=== PATIENT | male | born 1980 | race Caucasian/White ===

== ENCOUNTER 2023-09-04 15:37 | Outpatient (AMB) | payer OTHER, SELFPAY ==
--- NOTE | 2023-09-04 15:46 | A.OFFPC_ITS ---
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 Has not seen primary care doctor in quite a while. He does have past medical history significant for obstructive sleep apnea and obesity. Reports his lifestyle has been fairly sedentary and he does not eat well at all. Has not tried to lose any weight at this point in knows it is time to work on his lifestyle. Today's blood pressure in office elevated today. He reports a lot of stress at work which could be contributing to his high blood pressure. PLAN: He is willing to start blood pressure medication and start tracking his blood pressure at home with goal blood pressure to be below 140/90 .. Obstructive sleep apnea: He was followed by a christmas tree contractor at [place] though has lost follow-up. He does use a CPAP machine on a nightly basis with good effect. He would like to reestablish care with a christmas tree contractor here in [place]. VAccine : Does report having a COVID vaccine, up-to-date with tetanus vaccine and pneumonia vaccine. [facility] Surgical History S/P knee surgery S/P tonsillectomy Social History (Updated 09/04/23 @ 16:45 by Sean Aguilar PA-C) Housing: House Alcohol intake: current Alcohol intake frequency: a few times a week Alcohol type: beer Patient Tobacco Use Status: Never used Tobacco e-Cigarette/Vaping Use: Never Used service: No Current occupational status: employed Current occupation: [employer] Cognitive needs: No Hearing needs: No Vision needs: No Questionnaire PHQ-9 Over the last 2 weeks, how often have you been bothered by any of the following problems? 1. Little interest or pleasure in doing things: not at all 2. Feeling down, depressed, or hopeless: not at all 3. Trouble falling or staying asleep, or sleeping too much: not at all 4. Feeling tired or having little energy: not at all 5. Poor appetite or overeating: not at all 6. Feeling bad about yourself - or that you are a failure or have let yourself or your family down: not at all 7. Trouble concentrating on things, such as reading the newspaper or watching television: not at all 8. Moving or speaking so slowly that other people could have noticed. Or the opposite - being so fidgety or restless that you have been moving around a lot more than usual: not at all 9. Thoughts that you would be better off or of hurting yourself in some way: not at all Total score: 0 Depression Screening Interpretation: Negative Depression Screening Done: Yes 85905 - PHQ-9 Billing: Yes Source: Developed by Drs. Juan Borjas, Connie Keita, Obed Lacey and colleagues, with an educational izabel from [employer]. Thrive Questionnaire Date Thrive assessed: 09/04/23 I am a: Patient What is your living situation today?: I have a steady place to live Within the past 12 months, did the food you bought not last and you didn't have the money to get more?: Never true Within the past 12 months, did you worry whether your food would run out before you got money to buy more?: Never true Do you have trouble paying for medicines?: No Do you have trouble getting transportation to medical appointments?: No Do you have trouble paying your heating and electricity bill?: No Do you have trouble taking care of your child, family member or friend?: No Do you have trouble with day-to-day activities such as bathing, preparing meals, shopping, managing finances, etc.?: No Are you currently unemployed and looking for a job?: No Are you interested in more education?: No Please select the resources that you would like help with: None Currently or been in a relationship where the following occur: no concerns reported THRIVE Score: 0 AUDIT C Alcohol Use Questionnaire (AUDIT-C) 1. How often do you have a drink containing alcohol?: 2-4 times a month 2. How many drinks containing alcohol do you have on a typical day when you are drinking?: 3 or 4 3. How often do you have six or more drinks on one occasion?: Never Total Score: 3 JOSSELINE-7 AMB Questionnaire JOSSELINE-7 Date JOSSELINE - 7 assessed: 09/04/23 Feeling nervous, anxious, or on edge: 0 = Not at all Not being able to stop or control worryin = Not at all Worrying too much about different things: 0 = Not at all Trouble relaxin = Not at all Being so restless that it is hard to sit still: 0 = Not at all Becoming easily annoyed or irritable: 0 = Not at all Feeling afraid as if something awful might happen: 0 = Not at all Total JOSSELINE-7 score (0-4 normal; 5-9 mild; 10-14 moderate; 15-21 severe): 0 Source: Developed by Drs. Juan Borjas, Connie Keita, Obed Lacey and colleagues, with an educational izabel from [employer]. JOSSELINE-7 Assessment Billing JOSSELINE-7 Assessment Tool: JOSSELINE-7 Assessment 46310 Review of Systems Const Denies headache(s) Eyes Denies loss of vision ENT Denies vertigo, Denies dizziness, Denies headache(s) and Denies sore throat Card Denies chest pain, Denies leg edema and Denies lightheadedness Resp Denies cough, Denies hemoptysis and Denies wheezing GI Denies abdominal pain, Denies melena, Denies constipation, Denies diarrhea and Denies vomiting Denies dysuria, Denies urinary frequency and Denies urinary urgency Musc Denies arthralgias, Denies joint swelling, Denies numbness and Denies tingling Neuro Denies Abnormal speech present, Denies behavioral changes, Denies vertigo, Denies dizziness, Denies headache(s), Denies loss of vision, Denies memory loss, Denies numbness and Denies tingling Psych Denies anxiety, Denies behavioral changes, Denies depression, Denies memory loss and Denies panic attacks Rashard/Lymph Denies easy bleeding and Denies easy bruising Aller/Immun Denies wheezing Physical exam (Primary Care) Vital Signs: Last Vital Signs Pulse 87 09/04/23 16:09 BP 168/94 H 09/04/23 16:09 Pulse Ox 96 09/04/23 16:09 Oxygen Delivery Method Room Air 09/04/23 16:09 BMI result Body Mass Index 57.0 BMI Assessment/Plan discussion: High Tobacco/Smoking Status: Tobacco use Status Tobacco use date assessed 09/04/23 09/04/23 16:16 Patient Tobacco Use Status Never used Tobacco 09/04/23 16:45 e-Cigarette/Vaping Use Never Used 09/04/23 16:45 PHQ-9: PHQ-9 Score PHQ-9: Total score 0 09/04/23 16:50 Depression Screening Interpretation: Negative Thrive Assessment: Date of Thrive Assessment Date Thrive assessed 09/04/23 09/04/23 16:16 Currently or been in a relationship where the following occur: no concerns reported Const Other: MORBIDLY OBESE General: healthy appearing, no acute distress, alert and awake Nutritional Appearance: well nourished Orientation/consciousness: oriented to person, oriented to place and oriented to time HENMT Ears: TM's normal bilaterally General nose exam: Normal nasal mucous membranes and turbinates present Eyes Conjunctivae: conjunctivae normal Sclerae: sclerae normal Pupils: Equal, round and reactive pupils present Neck Neck: Yes no lymphadenopathy and Yes no JVD Thyroid: Thyroid normal Carotids: no bruits Resp Effort & Inspection: normal respiratory effort and not tachypneic Auscultation: no crackles, no rales, no rhonchi and no wheezes Cardio Rate: regular rate Rhythm: regular rhythm Heart sounds: no murmurs and normal S1 and S2 GI Palpation (GI): Soft to palpation, nontender, no hepatomegaly and no splenomegaly Auscultation: normal bowel sounds Skin General skin exam: no rashes or lesions noted and dry skin Neuro General: oriented to person, oriented to place and oriented to time Cranial nerves: Yes Equal, round and reactive pupils present Speech: No Abnormal speech present Gait exam (Neuro): Normal gait present Motor exam (neuro): no tremor noted Extrem Right upper extremity: full ROM Left upper extremity: full ROM Right lower extremity: full ROM; no edema Left lower extremity: full ROM; no edema Psych Mental Status: mental status grossly normal Speech and movement: Normal speech and movement present Affect: normal affect Attitude: cooperative Thought process: Normal thought process present Assessment and Plan Assessment & Plan (1) Annual physical exam: Code(s): Z00.00 - Encounter for general adult medical examination without abnormal findings (2) HTN (hypertension): Code(s): I10 - Essential (primary) hypertension Qualifiers: Hypertension type: primary hypertension Qualified Code(s): I10 - Essential (primary) hypertension Plan: Noted very elevated blood pressure today in office. He is willing to start low- dose blood pressure medication and monitor blood pressure at home with goal blood pressure to be below 140/90. (3) Obese: Code(s): E66.9 - Obesity, unspecified Qualifiers: Body mass index: BMI 50.0-59.9 Obesity classification: adult class 3 (BMI >= 40) Obesity type: due to excess calories Serious obesity comorbidity presence: with serious comorbidity Qualified Code(s): E66.01 - Morbid (severe) obesity due to excess calories; Z68.43 - Body mass index [BMI] 50.0-59.9, adult Plan: Patient does understand his BMI is well over 50 and will work on lifestyle and dietary modifications. He will try to be more physically active to lose weight. Of note we did discuss possibly starting injectable GLP 1 to help with weight loss and patient is considering We did also discuss weight management referral for evaluation of bariatric surgery though he would like to hold off on this for now. (4) Screening for diabetes mellitus (DM): Code(s): Z13.1 - Encounter for screening for diabetes mellitus (5) SULEMAN (obstructive sleep apnea): Code(s): G47.33 - Obstructive sleep apnea (adult) (pediatric) Plan: Patient does have a long history of SULEMAN. He continues on CPAP machine nightly basis with good effect. He was followed by a christmas tree contractor at [place] though has lost follow-up. He would like to reestablish care with a christmas tree contractor here in [place]. (6) Impaired glucose metabolism: Code(s): R73.09 - Other abnormal glucose Plan: Will check fasting blood sugar and A1c as I suspect he has an element of pre diabetes. (7) Skin lesion of neck: Code(s): L98.9 - Disorder of the skin and subcutaneous tissue, unspecified Plan: Has a large skin tag on his neck and in other areas of his body and he would like Dermatology evaluation and possible removal as they often bother him and gets stuck on clothing Orders: Orders Comprehensive [place]. Panel Fast 09/04/23 Z13.1 - Encounter for screening for diabetes mellitus Lipid Panel 09/04/23 E66.01 - Morbid (severe) obesity due to excess calories, Z68.43 - Body mass index [BMI] 50.0-59.9, adult Hemoglobin A1c 09/04/23 R73.09 - Other abnormal glucose Referrals Pulmonology Referral G47.33 - Obstructive sleep apnea (adult) (pediatric) Dermatology Referral L98.9 - Disorder of the skin and subcutaneous tissue, unspecified Medications: New hydrochlorothiazide 12.5 mg PO DAILY 30 days 30 tabs 1RF I10 - Essential (primary) hypertension, R73.09 - Other abnormal glucose Coding Level of Care Code New Pt Prev Care 40-64y(49532) Diagnoses Annual physical exam Z00.00 Primary hypertension I10 Hypertension type: primary hypertension Class 3 severe obesity due to excess calories with serious comorbidity and body mass index (BMI) of 50.0 to 59.9 in adult E66.01; Z68.43 Body mass index: BMI 50.0-59.9 Obesity classification: adult class 3 (BMI >= 40) Obesity type: due to excess calories Serious obesity comorbidity presence: with serious comorbidity Screening for diabetes mellitus (DM) Z13.1 SULEMAN (obstructive sleep apnea) G47.33 Impaired glucose metabolism R73.09 Skin lesion of neck L98.9 Additional Codes JOSSELINE-7 Assessment Billing - JOSSELINE-7 Assessment Tool: JOSSELINE-7 Assessment [id number] ([id number])
[2023-09-04 16:09] VITALS: BP 168/94; PULSE 87; O2SAT 96; BMI 57.0
== END 2023-09-04 17:09 | disposition home or self-care (01) ==
PROVIDERS: PCP Physician Assistant; Visit Provider Physician Assistant
DX: Z00.00 Encounter for general adult medical examination without abnormal findings (principal); I10 Essential (primary) hypertension; E66.01 Morbid (severe) obesity due to excess calories; Z68.43 Body mass index [BMI] 50.0-59.9, adult; Z13.1 Encounter for screening for diabetes mellitus; G47.33 Obstructive sleep apnea (adult) (pediatric); R73.09 Other abnormal glucose; L98.9 Disorder of the skin and subcutaneous tissue, unspecified
CPT/HCPCS: 99386

== ENCOUNTER 2023-10-08 13:24 | Outpatient (AMB) | payer OTHER, SELFPAY ==
[2023-10-08 13:26] VITALS: BP 157/84; PULSE 84; O2SAT 95; BMI 56.9
--- NOTE | 2023-10-08 13:26 | MHC.OFFVIS ---
Vital Signs 10/08/23 13:26 Height 5 ft 7.72 in Weight 371 lb 7.662 oz BMI 56.9 BP 157/84 H Blood Pressure Location Rt brachial Position Sitting Pulse 84 Pulse Source Doppler Pulse Oximetry (%) 95 Oxygen Delivery Method Room Air Intake Visit Reasons: sleep apnea Allergies No Known Allergies Allergy (Verified 10/08/23 13:32) HPI HPI sleep apnea: Details: 43-year-old gentleman with underlying severe sleep apnea currently on CPAP, with sleep study over 5 years prior referred for maintenance of his sleep therapy. Patient states that he has been using CPAP with good control of his symptoms. However, he does not have access to supplies. [facility] Surgical History S/P knee surgery S/P tonsillectomy Social History (Updated 10/08/23 @ 13:32 by Cheyanne Coto [facility]) Housing: House Alcohol intake: current Alcohol intake frequency: a few times a week Alcohol type: beer Patient Tobacco Use Status: Never used Tobacco Tobacco use type: Cigar e-Cigarette/Vaping Use: Never Used service: No Current occupational status: employed Current occupation: [employer] Cognitive needs: No Hearing needs: No Vision needs: No Review of Systems Const Denies daytime sleepiness, Denies excessive sweating, Denies fatigue, Denies fever(s), Denies lethargy, Denies malaise, Denies night sweats, Denies snoring and Denies weight loss Eyes Denies blurry vision and Denies itchy eyes ENT Denies nasal congestion, Denies post nasal drip, Denies sinus pain, Denies sinus pressure and Denies other ( Thrush) Card Denies chest pain, Denies pedal edema, Denies dyspnea, Denies orthopnea and Denies paroxysmal nocturnal dyspnea Resp Denies cough, Denies hemoptysis, Denies excessive phlegm production, Denies dyspnea, Denies snoring and Denies wheezing GI Denies abdominal pain and Denies heartburn Musc Denies myalgias, Denies arthralgias and Denies joint swelling Skin/Breast Denies rash Neuro Denies memory loss and Denies seizure-like activity Psych Denies abnormal sleep pattern, Denies anxiety and Denies memory loss Endo Denies excessive sweating, Denies fatigue and Denies heat intolerance Rashard/Lymph Denies easy bruising Aller/Immun Denies itchy eyes, Denies seasonal rhinorrhea and Denies wheezing Physical Exam Vital Signs: Last Vital Signs Pulse 84 10/08/23 13:26 BP 157/84 H 10/08/23 13:26 Pulse Ox 95 10/08/23 13:26 Oxygen Delivery Method Room Air 10/08/23 13:26 BMI result Body Mass Index 56.9 Const General: no acute distress and alert Nutritional Appearance: obese Orientation/consciousness: Other orientation findings ( oriented) HEENT Head: Yes atraumatic Eyes General: appearance normal, both eyes and all related structures Sclerae: sclerae normal EOM: EOMs intact bilaterally Neck Neck: Yes supple Lymphatic: no lymphadenopathy noted Resp Effort & Inspection: normal respiratory effort and no use of accessory muscles Auscultation: clear to auscultation bilaterally Cardio Rate: regular rate Rhythm: regular rhythm Heart sounds: no gallops, no murmurs and no rubs Skin General skin exam: other ( warm) Extrem General: No clubbing, No cyanosis and No edema Assessment & Plan Assessment & Plan (1) Obese: Code(s): E66.9 - Obesity, unspecified Category: Medical Qualifiers: Obesity type: due to excess calories Obesity classification: adult class 3 (BMI >= 40) Serious obesity comorbidity presence: with serious comorbidity Body mass index: BMI 50.0-59.9 Qualified Code(s): E66.01 - Morbid (severe) obesity due to excess calories; Z68.43 - Body mass index [BMI] 50.0-59.9, adult Plan: Morbid obesity, weight management service information provided. (2) SULEMAN (obstructive sleep apnea): Code(s): G47.33 - Obstructive sleep apnea (adult) (pediatric) Category: Medical Plan: Underlying severe obstructive sleep apnea currently on CPAP with remote sleep study in changes in weight. Will obtain new sleep study. Will request results of prior sleep study from [facility]. Will place supplies order with [facility]. Coding Level of Care Code New Pt Level 4 (02739) Diagnoses Class 3 severe obesity due to excess calories with serious comorbidity and body mass index (BMI) of 50.0 to 59.9 in adult E66.01; Z68.43 Obesity type: due to excess calories Obesity classification: adult class 3 (BMI >= 40) Serious obesity comorbidity presence: with serious comorbidity Body mass index: BMI 50.0-59.9 SULEMAN (obstructive sleep apnea) G47.33
== END 2023-10-08 13:41 | disposition home or self-care (01) ==
PROVIDERS: PCP Physician Assistant; Visit Provider Internal Medicine Pulmonary Disease
DX: E66.01 Morbid (severe) obesity due to excess calories (principal); Z68.43 Body mass index [BMI] 50.0-59.9, adult; G47.33 Obstructive sleep apnea (adult) (pediatric)
CPT/HCPCS: 99204

== ENCOUNTER → 2023-10-08 13:24 | Outpatient (BNVA) | payer OTHER, SELFPAY | PROVIDERS: PCP Physician Assistant; Visit Provider Internal Medicine Pulmonary Disease ==

== ENCOUNTER 2023-10-17 06:08 | Outpatient (REF) | payer OTHER, SELFPAY ==
[2023-10-17 11:07] LABS: Estimated Average Glucose 111 mg/dL; Hemoglobin A1c % 5.5 % (<6.0)
[2023-10-17 11:52] LABS: Alanine Aminotransferase 76 U/L (0-40); Albumin Level 4.3 g/dL (3.5-5.0); Alkaline Phosphatase 84 U/L (39-117); Anion Gap 16 (12-20); Aspartate Amino Transferase 42 U/L (5-37); Bilirubin Total 1.1 mg/dL (0.0-1.0); Blood Urea Nitrogen 17 mg/dL (9-16); Calcium 10.2 mg/dL (8.4-10.2); Carbon Dioxide 27 mmol/L (22-29); Chloride 98 mmol/L (96-108); Cholesterol 176 mg/dL (<200); Estimated Glomerular Filt Rate > 60; Glucose Fasting 95 mg/dL (60-99); HDL Cholesterol 52 mg/dL (>40); LDL Cholesterol Calculated 110 mg/dL (<100); Potassium 4.3 mmol/L (3.3-5.1); Sodium 137 mmol/L (135-145); Triglycerides 71 mg/dL (<150)
== END 2023-10-17 06:09 | disposition home or self-care (01) ==
LOC: HO.HMGCLDS 06:08
PROVIDERS: PCP Physician Assistant; Visit Provider Physician Assistant
DX: E66.01 Morbid (severe) obesity due to excess calories (principal); R73.09 Other abnormal glucose; Z13.1 Encounter for screening for diabetes mellitus; Z68.43 Body mass index [BMI] 50.0-59.9, adult
CPT/HCPCS: 36415; 80053; 80061; 83036

== ENCOUNTER 2023-10-22 13:49 | Outpatient (AMB) | payer OTHER, SELFPAY ==
--- NOTE | 2023-10-22 13:55 | MHC.PC.OV ---
Vital Signs 10/22/23 14:03 10/22/23 14:23 Height 5 ft 7.72 in Weight 372 lb 9.299 oz BMI 57.1 BP 170/80 H 160/90 H Blood Pressure Location Lt brachial Position Sitting Pulse 88 Pulse Source Pulse Oximeter Pulse Oximetry (%) 95 Oxygen Delivery Method Room Air Intake Visit Reasons: 6 week follow up Intake Note: Pt is here for HTN F/U. Associate Sales Representative Required: No Accompanied by: Self / Same As Patient Allergies No Known Allergies Allergy (Verified 10/22/23 14:05) Medication List - Last Reconciled 10/22/23 by Sean Aguilar PA-C hydrochlorothiazide 12.5 mg PO DAILY 30 days Tobacco use date assessed: 09/04/23 Dental Screening Dental Screen Date: 09/04/23 HPI 6 week follow up HPI Details Patient is a 43 year male here today for a follow-up visit. . He does have past medical history significant for obstructive sleep apnea, HTN, and obesity. Hypertension: Today's blood pressure in office elevated today. He reports a lot of stress at work which could be contributing to his high blood pressure. PLAN: He is willing to add on lisinopril 10 mg for better blood pressure control. Will continue on low-sodium diet and try to lose weight. .. Obstructive sleep apnea: He has establish care with [facility].. He does use a CPAP machine on a nightly basis with good effect. .. Morbid obesity: He does understand his BMI is well over 50 and will try to work on better eating habits and being more physically active to reduce his weight. He is interested in speaking with a dietitian about better eating habits as well. [facility] Surgical History S/P knee surgery S/P tonsillectomy Social History Housing: House Alcohol intake: current Alcohol intake frequency: a few times a week Alcohol type: beer Patient Tobacco Use Status: Never used Tobacco Tobacco use type: Cigar e-Cigarette/Vaping Use: Never Used service: No Current occupational status: employed Current occupation: [employer] Cognitive needs: No Hearing needs: No Vision needs: No Questionnaire Thrive Questionnaire Date Thrive assessed: 09/04/23 JOSSELINE-7 AMB Questionnaire JOSSELINE-7 Date JOSSELINE - 7 assessed: 09/04/23 Source: Developed by Drs. Juan Borjas, Connie Keita, Obed Lacey and colleagues, with an educational izabel from [employer]. Review of Systems Const Denies headache(s) Eyes Denies loss of vision ENT Denies vertigo, Denies dizziness, Denies headache(s) and Denies sore throat Card Denies chest pain, Denies leg edema and Denies lightheadedness Resp Denies cough, Denies hemoptysis and Denies wheezing GI Denies abdominal pain, Denies melena, Denies constipation, Denies diarrhea and Denies vomiting Denies dysuria, Denies urinary frequency and Denies urinary urgency Musc Denies arthralgias, Denies joint swelling, Denies numbness and Denies tingling Neuro Denies Abnormal speech present, Denies behavioral changes, Denies vertigo, Denies dizziness, Denies headache(s), Denies loss of vision, Denies memory loss, Denies numbness and Denies tingling Psych Denies anxiety, Denies behavioral changes, Denies depression, Denies memory loss and Denies panic attacks Rashard/Lymph Denies easy bleeding and Denies easy bruising Aller/Immun Denies wheezing Physical exam (Primary Care) Vital Signs: Last Vital Signs Pulse 88 10/22/23 14:03 BP 170/80 H 10/22/23 14:03 Pulse Ox 95 10/22/23 14:03 Oxygen Delivery Method Room Air 10/22/23 14:03 BMI result Body Mass Index 57.1 BMI Assessment/Plan discussion: High BMI High, discussed plan: lifestyle, weight reduction, dietary and physical activity Tobacco/Smoking Status: Tobacco use Status Tobacco use date assessed 09/04/23 10/22/23 14:01 Patient Tobacco Use Status Never used Tobacco 10/22/23 14:01 Tobacco use type Cigar 10/22/23 14:01 e-Cigarette/Vaping Use Never Used 10/22/23 14:01 Thrive Assessment: Date of Thrive Assessment Date Thrive assessed 09/04/23 10/22/23 14:01 Const General: healthy appearing, no acute distress, alert and awake Nutritional Appearance: well nourished Orientation/consciousness: oriented to person, oriented to place and oriented to time HENMT Ears: TM's normal bilaterally General nose exam: Normal nasal mucous membranes and turbinates present Eyes Conjunctivae: conjunctivae normal Sclerae: sclerae normal Pupils: Equal, round and reactive pupils present Neck Neck: Yes no lymphadenopathy and Yes no JVD Thyroid: Thyroid normal Carotids: no bruits Resp Effort & Inspection: normal respiratory effort and not tachypneic Auscultation: no crackles, no rales, no rhonchi and no wheezes Cardio Rate: regular rate Rhythm: regular rhythm Heart sounds: no murmurs and normal S1 and S2 GI Palpation (GI): Soft to palpation, nontender, no hepatomegaly and no splenomegaly Auscultation: normal bowel sounds Skin General skin exam: no rashes or lesions noted and dry skin Neuro General: oriented to person, oriented to place and oriented to time Cranial nerves: Yes Equal, round and reactive pupils present Speech: No Abnormal speech present Gait exam (Neuro): Normal gait present Motor exam (neuro): no tremor noted Extrem Right upper extremity: full ROM Left upper extremity: full ROM Right lower extremity: full ROM; no edema Left lower extremity: full ROM; no edema Psych Mental Status: mental status grossly normal Speech and movement: Normal speech and movement present Affect: normal affect Attitude: cooperative Thought process: Normal thought process present Assessment and Plan Assessment & Plan (1) HTN (hypertension): Code(s): I10 - Essential (primary) hypertension Qualifiers: Hypertension type: primary hypertension Qualified Code(s): I10 - Essential (primary) hypertension Plan: Patient's blood pressure elevated today in office. Has been on hydrochlorothiazide 12.5 mg though has not seen a decrease his blood pressure. He denies any symptoms of headache, chest pain. He does use CPAP machine on a nightly basis. Will add on lisinopril 10 mg to his blood pressure med regime for better blood pressure control. He will continue working on being more physically active and low-sodium diet. Goal blood pressures to be below 140/90 (2) SULEMAN (obstructive sleep apnea): Code(s): G47.33 - Obstructive sleep apnea (adult) (pediatric) Plan: Has establish care with [facility]. He is using CPAP on a nightly basis with good effect on sleep. (3) Elevated liver enzymes: Code(s): R74.8 - Abnormal levels of other serum enzymes Plan: Noted elevated liver enzymes. Likely related to fatty liver. We did discuss perhaps getting liver ultrasound though will hold off on this time. He will work on lifestyle modifications. Orders: Referrals Head Athletic Trainer Nutrition Referral E66.01 - Morbid (severe) obesity due to excess calories, Z68.43 - Body mass index [BMI] 50.0-59.9, adult Medications: New lisinopril-hydrochlorothiazide 10-12.5 mg 1 tab PO DAILY 30 days 30 tabs 3RF I10 - Essential (primary) hypertension Discontinued hydrochlorothiazide Discontinued Reason: Doctor's Order 12.5 mg PO DAILY 30 days 30 tabs 1RF I10 - Essential (primary) hypertension, R73.09 - Other abnormal glucose Patient Instructions: Goal: Blood pressure to be below 140/90 :Barriers: Adherence to healthy eating habits and physical activity Coding Level of Care Code Est Pt Level 4 (85697) Diagnoses Primary hypertension I10 Hypertension type: primary hypertension SULEMAN (obstructive sleep apnea) G47.33 Elevated liver enzymes R74.8
[2023-10-22 14:03] VITALS: BP 170/80; PULSE 88; O2SAT 95; BMI 57.1
[2023-10-22 14:23] VITALS: BP 160/90
== END 2023-10-22 14:28 | disposition home or self-care (01) ==
PROVIDERS: PCP Physician Assistant; Visit Provider Physician Assistant
DX: I10 Essential (primary) hypertension (principal); G47.33 Obstructive sleep apnea (adult) (pediatric); R74.8 Abnormal levels of other serum enzymes
CPT/HCPCS: 99214

== ENCOUNTER 2023-12-17 14:02 | Outpatient (AMB) | payer OTHER, SELFPAY ==
[2023-12-17 14:14] VITALS: BP 144/78; PULSE 86; O2SAT 93; BMI 58.0
--- NOTE | 2023-12-17 14:14 | A.OFFPC_ITS ---
Vital Signs 12/17/23 14:14 Height 5 ft 7.72 in Weight 378 lb 5.012 oz BMI 58.0 BP 144/78 H Blood Pressure Location Rt brachial Position Semi Couch's Pulse 86 Pulse Source Pulse Oximeter Pulse Oximetry (%) 93 Oxygen Delivery Method Room Air Intake Visit Reasons: 3wk f\u bp check [address] Deputy Clerk Required: No Accompanied by: Self / Same As Patient Allergies No Known Allergies Allergy (Verified 12/17/23 14:16) Medication List - Last Reconciled 12/17/23 by Sean Aguilar PA-C lisinopril-hydrochlorothiazide 10-12.5 mg 1 tab PO DAILY 30 days Tobacco use date assessed: 09/04/23 Dental Screening Dental Screen Date: 09/04/23 HPI 3wk f\u bp check HPI Details Patient is a 43 year male here today for a follow-up visit. . He does have past medical history significant for obstructive sleep apnea, HTN, and obesity. He is unfortunately gained some weight since last office visit. Hypertension: Today's blood pressure in office elevated today though appears improved as compared to previous blood pressure readings.. He continues on lisinopril hydrochlorothiazide. He reports a lot of stress at work which could be contributing to his high blood pressure. PLAN: Will increase his lisinopril dose to 20 mg for better blood pressure control. [facility] Surgical History S/P knee surgery S/P tonsillectomy Social History Housing: House Alcohol intake: current Alcohol intake frequency: a few times a week Alcohol type: beer Patient Tobacco Use Status: Never used Tobacco Tobacco use type: Cigar e-Cigarette/Vaping Use: Never Used service: No Current occupational status: employed Current occupation: [employer] Cognitive needs: No Hearing needs: No Vision needs: No Questionnaire Thrive Questionnaire Date Thrive assessed: 09/04/23 JOSSELINE-7 AMB Questionnaire JOSSELINE-7 Date JOSSELINE - 7 assessed: 09/04/23 Source: Developed by Drs. Juan Borjas, Connie Keita, Obed Lacey and colleagues, with an educational izabel from [employer]. Review of Systems Const Denies headache(s) Eyes Denies loss of vision ENT Denies vertigo, Denies dizziness, Denies headache(s) and Denies sore throat Card Denies chest pain, Denies leg edema and Denies lightheadedness Resp Denies cough, Denies hemoptysis and Denies wheezing GI Denies abdominal pain, Denies melena, Denies constipation, Denies diarrhea and D enies vomiting Denies dysuria, Denies urinary frequency and Denies urinary urgency Musc Denies arthralgias, Denies joint swelling, Denies numbness and Denies tingling Neuro Denies Abnormal speech present, Denies behavioral changes, Denies vertigo, Denies dizziness, Denies headache(s), Denies loss of vision, Denies memory loss, Denies numbness and Denies tingling Psych Denies anxiety, Denies behavioral changes, Denies depression, Denies memory loss and Denies panic attacks Rashard/Lymph Denies easy bleeding and Denies easy bruising Aller/Immun Denies wheezing Physical exam (Primary Care) Vital Signs: Last Vital Signs Pulse 86 12/17/23 14:14 BP 144/78 H 12/17/23 14:14 Pulse Ox 93 12/17/23 14:14 Oxygen Delivery Method Room Air 12/17/23 14:14 BMI result Body Mass Index 58.0 Tobacco/Smoking Status: Tobacco use Status Tobacco use date assessed 09/04/23 12/17/23 14:15 Patient Tobacco Use Status Never used Tobacco 12/17/23 14:15 Tobacco use type Cigar 12/17/23 14:15 e-Cigarette/Vaping Use Never Used 12/17/23 14:15 Thrive Assessment: Date of Thrive Assessment Date Thrive assessed 09/04/23 12/17/23 14:15 Const General: healthy appearing, no acute distress, alert and awake Nutritional Appearance: well nourished Orientation/consciousness: oriented to person, oriented to place and oriented to time HENMT Ears: TM's normal bilaterally General nose exam: Normal nasal mucous membranes and turbinates present Eyes Conjunctivae: conjunctivae normal Sclerae: sclerae normal Pupils: Equal, round and reactive pupils present Neck Neck: Yes no lymphadenopathy and Yes no JVD Thyroid: Thyroid normal Carotids: no bruits Resp Effort & Inspection: normal respiratory effort and not tachypneic Auscultation: no crackles, no rales, no rhonchi and no wheezes Cardio Rate: regular rate Rhythm: regular rhythm Heart sounds: no murmurs and normal S1 and S2 GI Palpation (GI): Soft to palpation, nontender, no hepatomegaly and no splenomegaly Auscultation: normal bowel sounds Skin General skin exam: no rashes or lesions noted and dry skin Neuro General: oriented to person, oriented to place and oriented to time Cranial nerves: Yes Equal, round and reactive pupils present Speech: No Abnormal speech present Gait exam (Neuro): Normal gait present Motor exam (neuro): no tremor noted Extrem Right upper extremity: full ROM Left upper extremity: full ROM Right lower extremity: full ROM; no edema Left lower extremity: full ROM; no edema Psych Mental Status: mental status grossly normal Speech and movement: Normal speech and movement present Affect: normal affect Attitude: cooperative Thought process: Normal thought process present Assessment and Plan Assessment & Plan (1) HTN (hypertension): Code(s): I10 - Essential (primary) hypertension Qualifiers: Hypertension type: primary hypertension Qualified Code(s): I10 - Essential (primary) hypertension Plan: Patient's blood pressure elevated today in office though seems to be better than previous. He has been on lisinopril 10 hydrochlorothiazide 12.5. Will increase his lisinopril to 20 mg for better blood pressure control.. He denies any symptoms of headache, chest pain. He will be set up with a financial director in near future to talk about diet plan. He is compliant with CPAP machine on a nightly basis. He will continue working on being more physically active and low-sodium diet. Goal blood pressures to be below 140/90 Medications: New lisinopril-hydrochlorothiazide 20-12.5 mg 1 tab PO DAILY 30 tabs 1RF 30 days I10 - Essential (primary) hypertension Discontinued lisinopril-hydrochlorothiazide 10-12.5 mg Discontinued Reason: Doctor's Order 1 tab PO DAILY 30 days 30 tabs 3RF I10 - Essential (primary) hypertension Patient Instructions: Goal: Blood pressure to be below 140/90 Barriers: Adherence to physical activity and healthy eating habits Coding Level of Care Code Est Pt Level 3 (97674) Diagnoses Primary hypertension I10 Hypertension type: primary hypertension
== END 2023-12-17 14:39 | disposition home or self-care (01) ==
PROVIDERS: PCP Physician Assistant; Visit Provider Physician Assistant
DX: I10 Essential (primary) hypertension (principal)
CPT/HCPCS: 99213

== ENCOUNTER 2023-12-26 14:22 | Outpatient (AMB) | payer OTHER, SELFPAY ==
[2023-12-26 14:40] VITALS: BMI 57.5
--- NOTE | 2023-12-26 14:40 | A.OFFVIS_ITS ---
VS Expanded 12/26/23 14:40 01/02/24 10:11 Height 5 ft 7.72 in 5 ft 7.72 in Weight 374 lb 12.573 oz 375 lb BMI 57.5 57.5 Intake Visit Reasons: OBESITY/LVM Allergies No Known Allergies Allergy (Verified 12/17/23 14:16) Nutrition Presentation Details: Pt presents for MNT for morbid obesity. The Pt was referred by PCP, Jordyn Diaz Pt reports havingn o meal routine and reports increased appetite BS Monitoring Most Recent Diabetes Results: Cholesterol 176 mg/dL (<200) 10/17/23 HDL Cholesterol 52 mg/dL (>40) 10/17/23 Triglycerides 71 mg/dL (<150) 10/17/23 Creatinine 0.92 mg/dL (0.5-1.4) 10/17/23 Blood Urea Nitrogen 17 mg/dL (9-16) H 10/17/23 Sodium 137 mmol/L (135-145) 10/17/23 Potassium 4.3 mmol/L (3.3-5.1) 10/17/23 Chloride 98 mmol/L (96-108) 10/17/23 Carbon Dioxide 27 mmol/L (22-29) 10/17/23 Calcium 10.2 mg/dL (8.4-10.2) 10/17/23 AST 42 U/L (5-37) H 10/17/23 ALT 76 U/L (0-40) H 10/17/23 Total Protein 8.0 g/dL (6.5-8.0) 10/17/23 Albumin 4.3 g/dL (3.5-5.0) 10/17/23 VLC-Blweuhy-Fi.Jeor Equation Height: 5 ft 7.72 in Weight: 375 lb Resting Metabolic Rate: 2567.77 Calculated Activity Level: Sedentary Calories Needed to Maintain Weight: 3081.32 Diagnosis Nutrition problem #1: food nutri know defi As related to (etiology) #1: diagnosis As evidenced by (sign/symptom) #1: knowledge deficit of diet [facility] Surgical History S/P knee surgery S/P tonsillectomy Social History Housing: House Alcohol intake: current Alcohol intake frequency: a few times a week Alcohol type: beer Patient Tobacco Use Status: Never used Tobacco Tobacco use type: Cigar e-Cigarette/Vaping Use: Never Used service: No Current occupational status: employed Current occupation: [employer] Cognitive needs: No Hearing needs: No Vision needs: No Assessment & Plan Assessment & Plan (1) Obese: Code(s): E66.9 - Obesity, unspecified Category: Medical Qualifiers: Obesity type: due to excess calories Obesity classification: adult class 3 (BMI >= 40) Serious obesity comorbidity presence: with serious comorbidity Body mass index: BMI 50.0-59.9 Qualified Code(s): E66.01 - Morbid (severe) obesity due to excess calories; Z68.43 - Body mass index [BMI] 50.0- 59.9, adult Plan: Wt: 170 Kg ( 01/07 ) Est kcal needs as per MSJ: 3100 (40% carb, 30% protein/fat) Est fluid needs as per 25-30 ml/d: 5100 Est prot per day as per 1 g/kg bw: 170 Recommend fiber intake : 8-10 g per day and gradually increase to 25-28 g per day for women and 35-38 g for men or as tolerated Recommend sodium intake per day : less than 1500 mg less than 2000 mg Educated patient on: ( R = reviewed V = verbalizes understanding N/R = needs review N/A = not applicable * Food sources of carbohydrate, adequate serving sizes and its role in various health conditions: R * Differences between complex carbohydrates a simple carbohydrates, role of fiber in diet: R * Lean protein sources of foods: R * Differences between types of fats and role in diet (mono on saturated fat fatty acids, saturated fatty acids, trans fats): R V N/R * Food sources of sodium in salt and healthy modifications for heart health in kidney health: R * Vitamins and minerals: R V N/R * Healthy plate method concept: R * Physical activity: Benefits a precaution: R V N/R * Dietary prevention of Hyperglycemia: R Patient Instructions: Practice mindful eating Have water with meals /snack, ok herb/fruit infused water Reduce total carb to 100g or less per meal 3 meals/day and 0-20 g as snack 3 snacks a day Coding Level of Care Code Nutr Indiv Intake (42034) Diagnoses Class 3 severe obesity due to excess calories with serious comorbidity and body mass index (BMI) of 50.0 to 59.9 in adult E66.01; Z68.43 Obesity type: due to excess calories Obesity classification: adult class 3 (BMI >= 40) Serious obesity comorbidity presence: with serious comorbidity Body mass index: BMI 50.0-59.9 Time Spent (min) 30
[2024-01-02 10:11] VITALS: BMI 57.5
== END 2023-12-26 15:17 | disposition home or self-care (01) ==
PROVIDERS: PCP Physician Assistant; Visit Provider Dietitian, Registered
DX: E66.01 Morbid (severe) obesity due to excess calories (principal); Z68.43 Body mass index [BMI] 50.0-59.9, adult

== ENCOUNTER → 2023-12-26 14:22 | Outpatient (BNVA) | payer OTHER, SELFPAY | PROVIDERS: PCP Physician Assistant; Visit Provider Dietitian, Registered | DX: E66.01 Morbid (severe) obesity due to excess calories (principal); Z68.43 Body mass index [BMI] 50.0-59.9, adult; Z71.3 Dietary counseling and surveillance | CPT/HCPCS: 97802 ==

== ENCOUNTER 2024-01-14 12:53 | Outpatient (AMB) | payer OTHER, SELFPAY ==
--- NOTE | 2024-01-14 12:55 | A.OFFPC_ITS ---
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 He has been continued on lisinopril hydrochlorothiazide with decent affect. Unfortunately blood pressures remain elevated today in office. Of note he has lost weight since last office visit after seeing dietitian and making some lifestyle changes. Blood pressures are still slightly elevated at home 140s to 150 systolic. Will increase his hydrochlorothiazide dose to 25 mg. Concern--> he reports he has had a sore throat and some odynophagia ever since getting an illness in early December. [facility] Surgical History S/P knee surgery S/P tonsillectomy Social History Housing: House Alcohol intake: current Alcohol intake frequency: a few times a week Alcohol type: beer Patient Tobacco Use Status: Never used Tobacco Tobacco use type: Cigar e-Cigarette/Vaping Use: Never Used service: No Current occupational status: employed Current occupation: [employer] Cognitive needs: No Hearing needs: No Vision needs: No Questionnaire Thrive Questionnaire Date Thrive assessed: 09/04/23 JOSSELINE-7 AMB Questionnaire JOSSELINE-7 Date JOSSELINE - 7 assessed: 09/04/23 Source: Developed by Drs. Juan Borjas, Connie Keita, Obed Lacey and colleagues, with an educational izabel from [employer]. Review of Systems Const Denies headache(s) Eyes Denies loss of vision ENT Denies vertigo, Denies dizziness, Denies headache(s) and Denies sore throat Card Denies chest pain, Denies leg edema and Denies lightheadedness Resp Denies cough, Denies hemoptysis and Denies wheezing GI Denies abdominal pain, Denies melena, Denies constipation, Denies diarrhea and Denies vomiting Denies dysuria, Denies urinary frequency and Denies urinary urgency Musc Denies arthralgias, Denies joint swelling, Denies numbness and Denies tingling Neuro Denies Abnormal speech present, Denies behavioral changes, Denies vertigo, Denies dizziness, Denies headache(s), Denies loss of vision, Denies memory loss, Denies numbness and Denies tingling Psych Denies anxiety, Denies behavioral changes, Denies depression, Denies memory loss and Denies panic attacks Rashard/Lymph Denies easy bleeding and Denies easy bruising Aller/Immun Denies wheezing Physical exam (Primary Care) Vital Signs: Last Vital Signs Pulse 77 01/14/24 12:56 BP 158/86 H 01/14/24 12:56 Pulse Ox 95 01/14/24 12:56 Oxygen Delivery Method Room Air 01/14/24 12:56 BMI result Body Mass Index 56.6 Tobacco/Smoking Status: Tobacco use Status Tobacco use date assessed 09/04/23 01/14/24 13:00 Patient Tobacco Use Status Never used Tobacco 01/14/24 13:00 Tobacco use type Cigar 01/14/24 13:00 e-Cigarette/Vaping Use Never Used 01/14/24 13:00 Thrive Assessment: Date of Thrive Assessment Date Thrive assessed 09/04/23 01/14/24 13:00 Const General: healthy appearing, no acute distress, alert and awake Nutritional Appearance: well nourished Orientation/consciousness: oriented to person, oriented to place and oriented to time HENMT Ears: TM's normal bilaterally General nose exam: Normal nasal mucous membranes and turbinates present Eyes Conjunctivae: conjunctivae normal Sclerae: sclerae normal Pupils: Equal, round and reactive pupils present Neck Neck: Yes no lymphadenopathy and Yes no JVD Thyroid: Thyroid normal Carotids: no bruits Resp Effort & Inspection: normal respiratory effort and not tachypneic Auscultation: no crackles, no rales, no rhonchi and no wheezes Cardio Rate: regular rate Rhythm: regular rhythm Heart sounds: no murmurs and normal S1 and S2 GI Palpation (GI): Soft to palpation, nontender, no hepatomegaly and no splenomegaly Auscultation: normal bowel sounds Skin General skin exam: no rashes or lesions noted and dry skin Neuro General: oriented to person, oriented to place and oriented to time Cranial nerves: Yes Equal, round and reactive pupils present Speech: No Abnormal speech present Gait exam (Neuro): Normal gait present Motor exam (neuro): no tremor noted Extrem Right upper extremity: full ROM Left upper extremity: full ROM Right lower extremity: full ROM; no edema Left lower extremity: full ROM; no edema Psych Mental Status: mental status grossly normal Speech and movement: Normal speech and movement present Affect: normal affect Attitude: cooperative Thought process: Normal thought process present Assessment and Plan Assessment & Plan (1) HTN (hypertension): Code(s): I10 - Essential (primary) hypertension Qualifiers: Hypertension type: primary hypertension Qualified Code(s): I10 - Essential (primary) hypertension Plan: Patient's blood pressure elevated today in office. He reports that home blood pressure still slightly elevated 140s to 150 systolic. Will increase his hydrochlorothiazide dose to 25 mg for better blood pressure control. He has lost weight since he has been talking to a dietitian and making some dietary modifications. Suspect he will lose more weight with continued dietary modifications along with that his blood pressure should stabilize. Goal blood pressure to be below 140/90 (2) Pharyngitis: Code(s): J02.9 - Acute pharyngitis, unspecified Qualifiers: Pharyngitis/tonsillitis etiology: other specified organisms Qualified Code(s): J02.8 - Acute pharyngitis due to other specified organisms Plan: Has a sore throat and some odynophagia over last 2 weeks. Throat exam without any erythema or tonsillar exudates. Will supply patient with amoxicillin for possible infection. Medications: New amoxicillin 500 mg PO Q8H 7 days 21 caps 0RF J02.8 - Acute pharyngitis due to other specified organisms lisinopril-hydrochlorothiazide 20-25 mg 1 tab PO DAILY 30 days 30 tabs 3RF I10 - Essential (primary) hypertension Discontinued lisinopril-hydrochlorothiazide 20-12.5 mg Discontinued Reason: Doctor's Order 1 tab PO DAILY 30 days 30 tabs 1RF I10 - Essential (primary) hypertension Coding Level of Care Code Est Pt Level 3 (47586) Diagnoses Primary hypertension I10 Hypertension type: primary hypertension Pharyngitis due to other organism J02.8 Pharyngitis/tonsillitis etiology: other specified organisms
[2024-01-14 12:56] VITALS: BP 158/86; PULSE 77; O2SAT 95; BMI 56.6
== END 2024-01-14 13:22 | disposition home or self-care (01) ==
PROVIDERS: PCP Physician Assistant; Visit Provider Physician Assistant
DX: I10 Essential (primary) hypertension (principal); J02.8 Acute pharyngitis due to other specified organisms
CPT/HCPCS: 99213

== ENCOUNTER 2024-02-27 08:33 | Outpatient (AMB) | payer OTHER, SELFPAY ==
--- NOTE | 2024-02-27 08:53 | MHC.PC.OV ---
Vital Signs 02/27/24 08:55 Height 5 ft 7 in Weight 364 lb 2 oz BMI 57.0 BP 120/74 Blood Pressure Location Lt brachial Position Sitting Pulse 77 Pulse Source Pulse Oximeter Pulse Oximetry (%) 96 Oxygen Delivery Method Room Air Intake Visit Reasons: f/u HTN Intake Note: Patient is here to follow up on HTN. Industrial Controller Required: No Hospice/Home Health Aide: Not Required per policy Accompanied by: Self / Same As Patient Allergies No Known Allergies Allergy (Verified 02/27/24 09:04) Medication List - Last Reconciled 02/27/24 by Sean Aguilar PA-C lisinopril-hydrochlorothiazide 20-25 mg 1 tab PO DAILY 30 days Tobacco use date assessed: 02/27/24 Dental Screening Dental Screen Date: 09/04/23 HPI f/u HTN HPI Details Patient is a 44-year-old male here today for blood pressure med follow-up. At last visit we discussed his weight and blood pressure. We increased his hydrochlorothiazide 25 mg. Today's blood pressure much improved. Has lost a few lb since last office visit. He reports vacationing recently in October of fell off of his dietary modifications. He does report feeling somewhat more sweaty this is a side effect of the hydrochlorothiazide [facility] Surgical History S/P knee surgery S/P tonsillectomy Social History Housing: House Alcohol intake: current Alcohol intake frequency: a few times a week Alcohol type: beer Patient Tobacco Use Status: Never used Tobacco Tobacco use type: Cigar e-Cigarette/Vaping Use: Never Used Second Hand Smoke Exposure: No service: No Current occupational status: employed Current occupation: [employer] Cognitive needs: No Hearing needs: No Vision needs: No Questionnaire Thrive Questionnaire Date Thrive assessed: 09/04/23 JOSSELINE-7 AMB Questionnaire JOSSELINE-7 Date JOSSELINE - 7 assessed: 09/04/23 Source: Developed by Drs. Juan Borjas, Connie Keita, Obed Lacey and colleagues, with an educational izabel from [employer]. Review of Systems Const Denies headache(s) Eyes Denies loss of vision ENT Denies vertigo, Denies dizziness, Denies headache(s) and Denies sore throat Card Denies chest pain, Denies leg edema and Denies lightheadedness Resp Denies cough, Denies hemoptysis and Denies wheezing GI Denies abdominal pain, Denies melena, Denies constipation, Denies diarrhea and Denies vomiting Denies dysuria, Denies urinary frequency and Denies urinary urgency Musc Denies arthralgias, Denies joint swelling, Denies numbness and Denies tingling Neuro Denies Abnormal speech present, Denies behavioral changes, Denies vertigo, Denies dizziness, Denies headache(s), Denies loss of vision, Denies memory loss, Denies numbness and Denies tingling Psych Denies anxiety, Denies behavioral changes, Denies depression, Denies memory loss and Denies panic attacks Rashard/Lymph Denies easy bleeding and Denies easy bruising Aller/Immun Denies wheezing Physical exam (Primary Care) Vital Signs: Last Vital Signs Pulse 77 02/27/24 08:55 BP 120/74 02/27/24 08:55 Pulse Ox 96 02/27/24 08:55 Oxygen Delivery Method Room Air 02/27/24 08:55 BMI result Body Mass Index 57.0 Tobacco/Smoking Status: Tobacco use Status Tobacco use date assessed 02/27/24 02/27/24 09:01 Patient Tobacco Use Status Never used Tobacco 02/27/24 09:01 Tobacco use type Cigar 02/27/24 09:01 e-Cigarette/Vaping Use Never Used 02/27/24 09:01 Thrive Assessment: Date of Thrive Assessment Date Thrive assessed 09/04/23 02/27/24 09:01 Const General: healthy appearing, no acute distress, alert and awake Nutritional Appearance: well nourished Orientation/consciousness: oriented to person, oriented to place and oriented to time HENMT Ears: TM's normal bilaterally General nose exam: Normal nasal mucous membranes and turbinates present Eyes Conjunctivae: conjunctivae normal Sclerae: sclerae normal Pupils: Equal, round and reactive pupils present Neck Neck: Yes no lymphadenopathy and Yes no JVD Thyroid: Thyroid normal Carotids: no bruits Resp Effort & Inspection: normal respiratory effort and not tachypneic Auscultation: no crackles, no rales, no rhonchi and no wheezes Cardio Rate: regular rate Rhythm: regular rhythm Heart sounds: no murmurs and normal S1 and S2 GI Palpation (GI): Soft to palpation, nontender, no hepatomegaly and no splenomegaly Auscultation: normal bowel sounds Skin General skin exam: no rashes or lesions noted and dry skin Neuro General: oriented to person, oriented to place and oriented to time Cranial nerves: Yes Equal, round and reactive pupils present Speech: No Abnormal speech present Gait exam (Neuro): Normal gait present Motor exam (neuro): no tremor noted Extrem Right upper extremity: full ROM Left upper extremity: full ROM Right lower extremity: full ROM; no edema Left lower extremity: full ROM; no edema Psych Mental Status: mental status grossly normal Speech and movement: Normal speech and movement present Affect: normal affect Attitude: cooperative Thought process: Normal thought process present Assessment and Plan Assessment & Plan (1) HTN (hypertension): Code(s): I10 - Essential (primary) hypertension Qualifiers: Hypertension type: primary hypertension Qualified Code(s): I10 - Essential (primary) hypertension Plan: Patient's blood pressure much improved today in office. Continues on lisinopril 20 and hydrochlorothiazide 25 without any side effect. He has not been monitoring his blood pressure at home as he reports he effective blood pressure cuff. Suspect he will lose more weight with continued dietary modifications along with that his blood pressure should stabilize. Goal blood pressure to be below 140/90 Orders: Orders Comprehensive [place]. Panel Fast Today R73.09 - Other abnormal glucose Hemoglobin A1c Today R73.09 - Other abnormal glucose Microalbumin, Random (w Creat) Today I10 - Essential (primary) hypertension Patient Instructions: Goal: Blood pressure to remain below 140/90, lose 10 more lb in the next 3 months. Barriers: Adherence to physical activity and healthy eating habits Coding Level of Care Code Est Pt Level 4 (83530) Diagnoses Primary hypertension I10 Hypertension type: primary hypertension
[2024-02-27 08:55] VITALS: BP 120/74; PULSE 77; O2SAT 96; BMI 57.0
== END 2024-02-27 09:16 | disposition home or self-care (01) ==
PROVIDERS: PCP Physician Assistant; Visit Provider Physician Assistant
DX: I10 Essential (primary) hypertension (principal)
CPT/HCPCS: 99214

== ENCOUNTER 2024-03-05 13:21 | Outpatient (AMB) | payer OTHER, SELFPAY ==
[2024-03-05 13:34] VITALS: BMI 57.3
--- NOTE | 2024-03-05 13:34 | A.OFFVIS_ITS ---
VS Expanded 03/05/24 13:34 Height 5 ft 7 in Weight 365 lb 15.477 oz BMI 57.3 Intake Visit Reasons: obesity/LVM Allergies No Known Allergies Allergy (Verified 02/27/24 09:04) Nutrition Presentation Details: Pt presents for MNT for obesity Reports working on diet modifications, doing well when at work however with increased appetite when at home. Was on vacation and is feeling as if he could have done better diet modifications. BS Monitoring Most Recent Diabetes Results: Cholesterol 176 mg/dL (<200) 10/17/23 HDL Cholesterol 52 mg/dL (>40) 10/17/23 Triglycerides 71 mg/dL (<150) 10/17/23 Creatinine 0.92 mg/dL (0.5-1.4) 10/17/23 Blood Urea Nitrogen 17 mg/dL (9-16) H 10/17/23 Sodium 137 mmol/L (135-145) 10/17/23 Potassium 4.3 mmol/L (3.3-5.1) 10/17/23 Chloride 98 mmol/L (96-108) 10/17/23 Carbon Dioxide 27 mmol/L (22-29) 10/17/23 Calcium 10.2 mg/dL (8.4-10.2) 10/17/23 AST 42 U/L (5-37) H 10/17/23 ALT 76 U/L (0-40) H 10/17/23 Total Protein 8.0 g/dL (6.5-8.0) 10/17/23 Albumin 4.3 g/dL (3.5-5.0) 10/17/23 [facility] Surgical History S/P knee surgery S/P tonsillectomy Social History Housing: House Alcohol intake: current Alcohol intake frequency: a few times a week Alcohol type: beer Patient Tobacco Use Status: Never used Tobacco Tobacco use type: Cigar e-Cigarette/Vaping Use: Never Used Second Hand Smoke Exposure: No service: No Current occupational status: employed Current occupation: [employer] Cognitive needs: No Hearing needs: No Vision needs: No Assessment & Plan Assessment & Plan (1) Obese: Code(s): E66.9 - Obesity, unspecified Category: Medical Qualifiers: Body mass index: BMI 50.0-59.9 Obesity classification: adult class 3 (BMI >= 40) Obesity type: due to excess calories Serious obesity comorbidity presence: with serious comorbidity Qualified Code(s): E66.01 - Morbid (severe) obesity due to excess calories; Z68.43 - Body mass index [BMI] 50.0-59.9, adult Plan: Wt: 170 Kg ( 01/07 ), 166 kg (12/08),(03/10) Est kcal needs as per MSJ: 3100 (40% carb, 30% protein/fat) Est fluid needs as per 25-30 ml/d: 5100 Est prot per day as per 1 g/kg bw: 170 Recommend fiber intake : 8-10 g per day and gradually increase to 25-28 g per day for women and 35-38 g for men or as tolerated Recommend sodium intake per day : less than 1500 mg less than 2000 mg Educated patient on: ( R = reviewed V = verbalizes understanding N/R = needs review N/A = not applicable * Food sources of carbohydrate, adequate serving sizes and its role in various health conditions: R * Differences between complex carbohydrates a simple carbohydrates, role of fiber in diet: R * Lean protein sources of foods: R * Differences between types of fats and role in diet (mono on saturated fat fatty acids, saturated fatty acids, trans fats): R V N/R * Food sources of sodium in salt and healthy modifications for heart health in kidney health: R * Vitamins and minerals: R V N/R * Healthy plate method concept: R * Physical activity: Benefits a precaution: R V N/R * Dietary prevention of Hyperglycemia: R Patient Instructions: Work on serving meals at home utilizing plate method, opt for salad or fruit salad in place having second servings of the meal Eat slow, drink water Be mindful of salt in your food choices Coding Level of Care Code Nutr Indiv Subseq (27131) Diagnoses Class 3 severe obesity due to excess calories with serious comorbidity and body mass index (BMI) of 50.0 to 59.9 in adult E66.01; Z68.43 Body mass index: BMI 50.0-59.9 Obesity classification: adult class 3 (BMI >= 40) Obesity type: due to excess calories Serious obesity comorbidity presence: with serious comorbidity Time Spent (min) 30
== END 2024-03-05 14:14 | disposition home or self-care (01) ==
PROVIDERS: PCP Physician Assistant; Visit Provider Dietitian, Registered
DX: E66.01 Morbid (severe) obesity due to excess calories (principal); Z68.43 Body mass index [BMI] 50.0-59.9, adult

== ENCOUNTER → 2024-03-05 13:21 | Outpatient (BNVA) | payer OTHER, SELFPAY | PROVIDERS: PCP Physician Assistant; Visit Provider Dietitian, Registered | DX: E66.01 Morbid (severe) obesity due to excess calories (principal); Z68.43 Body mass index [BMI] 50.0-59.9, adult; Z71.3 Dietary counseling and surveillance | CPT/HCPCS: 97803 ==

== ENCOUNTER 2024-03-17 11:54 | Outpatient (AMB) | payer OTHER, SELFPAY ==
--- NOTE | 2024-03-17 11:59 | MHC.OFFWIV ---
Intake Vital Signs 03/17/24 12:00 Height 5 ft 7 in Weight 372 lb BMI 58.3 BP 140/82 H Blood Pressure Location Lt brachial Position Sitting Pulse 102 H Pulse Source Pulse Oximeter Temp 98.8 F Temp Source Oral Pulse Oximetry (%) 92 Oxygen Delivery Method Room Air Intake Visit Reasons: EP cough for a couple of weeks & phlem Intake Note: Patient here for cough that has been present for about 1 week. Wheezing and SOB Patient Tobacco Use Status: Never used Tobacco Allergies No Known Allergies Allergy (Verified 03/17/24 12:01) Do you need a note to return to daycare/school/sports/work: Yes HPI HPI Comments History of Present Illness Details 44 y/o male patient who presents to the walk in clinic with c/o SOB, productive cough and Wheezing for few weeks now. Denies fevers, chills, nausea or vomiting. 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 [facility] Surgical History S/P knee surgery S/P tonsillectomy Social History Housing: House Alcohol intake: current Alcohol intake frequency: a few times a week Alcohol type: beer Patient Tobacco Use Status: Never used Tobacco Tobacco use type: Cigar e-Cigarette/Vaping Use: Never Used Second Hand Smoke Exposure: No service: No Current occupational status: employed Current occupation: [employer] Cognitive needs: No Hearing needs: No Vision needs: No Review of Systems Const All systems reviewed & are unremarkable except as noted in HPI and below Physical Exam Vital Signs: Last Vital Signs Temp 98.8 F 03/17/24 12:00 Pulse 102 H 03/17/24 12:00 BP 140/82 H 03/17/24 12:00 Pulse Ox 92 03/17/24 12:00 Oxygen Delivery Method Room Air 03/17/24 12:00 BMI result Body Mass Index 58.3 Const Other: Mildly in distress, Pt has SOB and difficult completing sentences. General: cooperative; No comfortable Nutritional Appearance: obese morbidly obese Orientation/consciousness: patient oriented x3 HEENT Head: Yes normocephalic Ears: external ears normal Mouth: moist mucous membranes Throat: Yes postnasal drainage Resp Other: Unable to hear lung sounds well due to large body Habitus. Ordered chest Xray. Effort & Inspection: not able to speak in complete sentences and labored Neuro General: patient oriented x3, gait normal and moves all extremities Psych Speech and movement: Normal speech and movement present Assessment & Plan Assessment & Plan (1) Cough in adult: Code(s): R05.9 - Cough, unspecified Plan: Ordered chest Xray. Ordered Albuterol inhaler Rest OTC cough remedies Acetaminophen for pain relief (2) Wheezing on auscultation: Code(s): R06.2 - Wheezing Plan: Ordered chest Xray. Ordered Albuterol inhaler Rest OTC cough remedies Acetaminophen for pain relief (3) SOB (shortness of breath): Code(s): R06.02 - Shortness of breath Plan: Ordered chest Xray. Ordered Albuterol inhaler Rest OTC cough remedies Acetaminophen for pain relief Orders: Orders XR chest 2V Today R05.9 - Cough, unspecified, R06.02 - Shortness of breath, R06.2 - Wheezing Medications: New prednisone 50 mg PO DAILY 5 days 5 tabs 0RF R06.02 - Shortness of breath, R06.2 - Wheezing benzonatate 100 mg PO TID 90 caps 0RF R05.9 - Cough, unspecified doxycycline hyclate 100 mg PO BID 10 days 20 caps 0RF R05.9 - Cough, unspecified, R06.02 - Shortness of breath, R06.2 - Wheezing albuterol sulfate 90 mcg/actuation 2 puffs inhalation Q4-6H PRN 6.7 grams 0RF shortness of breath or wheezing R06.02 - Shortness of breath, R06.2 - Wheezing Coding Level of Care Code Est Pt Level 4 (75912) Diagnoses Cough in adult R05.9 Wheezing on auscultation R06.2 SOB (shortness of breath) R06.02 Time Spent (min) 20
[2024-03-17 12:00] VITALS: BP 140/82; PULSE 102; TEMP 37.1; O2SAT 92; BMI 58.3
== END 2024-03-17 13:58 | disposition home or self-care (01) ==
PROVIDERS: PCP Physician Assistant; Visit Provider Nurse Practitioner Family
DX: R05.9 Cough, unspecified (principal); R06.2 Wheezing; R06.02 Shortness of breath

== ENCOUNTER → 2024-03-17 11:54 | Outpatient (BNVA) | payer OTHER, SELFPAY | PROVIDERS: PCP Physician Assistant ==

== ENCOUNTER 2024-03-17 12:45 | Outpatient (REF) | payer OTHER, SELFPAY ==
--- NOTE | ~2024-03-17 | XR_ITS ---
EXAMINATION: XR CHEST CLINICAL INFORMATION: Cough, shortness of breath and wheezing for 2 weeks. COMPARISON: None available. TECHNIQUE: PA and lateral views of the chest were obtained. FINDINGS: No significant abnormality is noted involving the heart, lungs, mediastinum, bony thorax or soft tissues. XR/XR chest 2V IMPRESSION: Unremarkable examination. Electronically signed by: Anupam Mann MD 03/17/2024 02:27 PM EDT RP
== END 2024-03-17 12:46 | disposition home or self-care (01) ==
LOC: HO.HMGCX 12:45
PROVIDERS: PCP Physician Assistant; Visit Provider Nurse Practitioner Family
DX: R05.9 Cough, unspecified (principal); R06.2 Wheezing; R06.02 Shortness of breath
CPT/HCPCS: 71046

== ENCOUNTER 2024-03-17 14:56 | Inpatient (IN) | payer OTHER, SELFPAY ==
[2024-03-17] VITALS (10 sets, daily range): BP systolic 129–154; BP diastolic 63–98; PULSE 104–133; RESP 15–25; TEMP 36.8–37.2; O2SAT 90–95; BMI 56.0
--- NOTE | ~2024-03-17 | CT_ITS ---
EXAMINATION: CT ANGIOGRAM OF THE CHEST WITH AND WITHOUT CONTRAST (CT PULMONARY ANGIOGRAM FOR PE) CLINICAL INFORMATION: SOB, cough. hypoxia. COMPARISON: Chest radiograph 03/17/2024 earlier today TECHNIQUE: Prior to contrast administration, noncontrast localization images were obtained. Subsequently, multidetector volumetric imaging was performed from the thoracic inlet to the pubic symphysis through the chest, abdomen, and pelvis following the administration of 100 mL Omnipaque 350 intravenous contrast. No contrast reaction reported Sagittal, coronal, and MIP oblique sagittal (through the chest only) reformatted images were obtained on the CT workstation, uploaded to PACS, and reviewed. This CT examination was performed using dose optimization techniques as appropriate, variously including the following: *Automated exposure control *Adjustment of mA and/or kV according to patient size (this includes techniques or standardized protocols for targeted exams where dose is matched to indication/reason for exam; i.e. extremities or head) *Use of iterative reconstruction technique Total exam dose-length product: 567 mGy-cm FINDINGS: QUALITY OF STUDY/CONTRAST BOLUS: Satisfactory. PULMONARY ARTERIES: No central or segmental pulmonary emboli. CORONARY ARTERY CALCIUM: None seen THORACIC AORTA: No aneurysm or dissection. LUNG: Diffuse emphysematous changes are seen along with bronchial thickening without bronchiectasis. Some scattered mosaic groundglass changes are present. No suspicious lung masses are seen. PLEURA: No pleural effusion or pneumothorax. MEDIASTINUM: Normal heart size. No pericardial effusion. No hilar or mediastinal lymphadenopathy. No evidence of septal bowing or right heart strain. CHEST WALL/AXILLA: No axillary or internal mammary lymphadenopathy. OSSEOUS STRUCTURES: No acute or suspicious osseous abnormality. VISUALIZED ABDOMEN: The spleen is enlarged measuring almost 15 cm in greatest transverse length. The liver is likely enlarged but not completely excluded on this study. There is decreased attenuation consistent with hepatic steatosis with focal fatty sparing adjacent to the gallbladder. CT/CT angio chest PE protocol IMPRESSION: 1. No evidence of pulmonary emboli. 2. COPD with emphysema and bronchial thickening. 3. Splenomegaly and hepatic steatosis. VTE: negative. Fleischner guidelines were followed. Electronically signed by: Peter Hall MD 03/17/2024 08:18 PM EDT
--- NOTE | 2024-03-17 15:16 | ED.GENADULT ---
HPI - General Adult General Chief complaint: Dyspnea Stated complaint: Pneumonia Time Seen by Provider: 03/17/24 15:59 Source: patient and family Mode of arrival: ambulatory Limitations: no limitations History of Present Illness HPI narrative: Patient is a 44-year-old male who presents to the emergency department for evaluation. He reports over the past 3 weeks he has been experiencing a intermittently productive cough. Reports he was ill in December of 2023, never quite felt like he returned to his baseline. His cough and sensation of chest congestion was his only persistent symptom over the past 2 weeks. However last night he began feeling short of breath, he had a difficult time getting about at work today which brought him to the walk-in clinic. He states that he had a chest x-ray done, and was advised by a provider there that he had pneumonia, prescription for doxycycline was sent to his pharmacy in addition to prednisone and an albuterol inhaler. Unfortunately upon returning home, he was significantly short of breath while attempting to go up a very small flight of stairs which prompted his presentation to the emergency department. He arrives hypoxic down to 88% on room air, tachycardic up to 130s. He denies fevers, chills, chest pain, weakness, fatigue, recent lower extremity redness pain or swelling, lower extremity edema, numbness or tingling of his extremities. He is not a cigarette smoker. He states that he had pneumonia approximately 10 years ago that required hospitalization, he felt a lot worse then. 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 Related Data Home Medications ?Medication ?Instructions ?Recorded ?Confirmed epinephrine 0.125 mg/actuation 1 puff inhalation Q6H PRN 03/17/24 03/17/24 aerosol inhaler (Primatene Mist) Shortness Of Breath Or Wheezing Previous Rx's ?Medication ?Instructions ?Recorded lisinopril 20 1 tab PO DAILY 30 days #30 tabs 01/14/24 mg-hydrochlorothiazide 25 mg tablet Allergies Allergy/AdvReac Type Severity Reaction Status Date / Time No Known Allergies Allergy Verified 03/17/24 15:20 Review of Systems Review of Systems: Yes all other systems are reviewed and are negative PMFSH Past Medical History Attestation statement: The following information was validated with the patient. Source: old records reviewed Medical History SULEMAN (obstructive sleep apnea) Impaired glucose metabolism HTN (hypertension) Surgical History S/P knee surgery S/P tonsillectomy Social History Social History Housing: House Alcohol intake: current Alcohol intake frequency: a few times a week Alcohol type: beer Patient Tobacco Use Status: Never used Tobacco Tobacco use type: Cigar Smoked in Last 30 Days: No e-Cigarette/Vaping Use: Never Used Second Hand Smoke Exposure: No Use of substances other than those prescribed or required for medical reasons: No Advance Directives: No Advance Directives Information Provided: No service: No Current occupational status: employed Current occupation: [employer] Cognitive needs: No Hearing needs: No Vision needs: No Physical Exam ED Vital Signs: Vital Signs - 24 hr 03/17/24 15:16 03/17/24 15:28 03/17/24 15:35 Temperature 98.3 F 98.8 F 98.8 F Pulse Rate 122 H 104 H 119 H Respiratory Rate 24 H 25 H 18 Blood Pressure 129/87 153/63 H 153/63 H Pulse Oximetry 90 L 90 L 90 L Oxygen Delivery Method Room Air Room Air Room Air Oxygen Flow Rate 03/17/24 16:29 03/17/24 16:37 03/17/24 17:02 Temperature 99.0 F Pulse Rate 120 H 133 H Respiratory Rate 18 16 Blood Pressure 130/71 Pulse Oximetry 94 95 Oxygen Delivery Method Nasal Cannula Nasal Cannula Oxygen Flow Rate 2 2 03/17/24 18:14 03/17/24 19:18 03/17/24 19:37 Temperature 99.0 F 98.9 F Pulse Rate 121 H 106 H 115 H Respiratory Rate 17 15 17 Blood Pressure 130/71 150/98 H 152/87 H Pulse Oximetry 94 93 92 Oxygen Delivery Method Room Air Nasal Cannula Nasal Cannula Oxygen Flow Rate 2 2 2 BMI result Body Mass Index 56.0 Appearance: Alert.?Oriented to person, place and time. No acute distress.?Normal affect. Eyes: Pupils equal, round and reactive to light.? ENT: Pharynx normal.?? Neck: Normal inspection.? Neck supple.?? CVS: Heart sounds normal. Normal heart rate and rhythm.? Pulses normal.?? Respiratory: No respiratory distress.? Lung sounds diminished to auscultation bilaterally?? Abdomen: Soft and non-tender. Normoactive bowel sounds. Skin: Skin warm and dry.? Normal skin color.? Extremities: No lower extremity edema.? No calf ttp? Neuro: Moves all extremities spontaneously. Sensation intact bilaterally. No focal neuro deficits. Ambulates with normal steady gait. Course Course Course Narrative: RME, this is a rapid medical exam performed by Ruddy Robert please refer to primary provider for complete H&P- 44 year old male presents for evaluation of cough, congestion he went to urgent care today and had an x-ray that did show any acute abnormalities. The patient is hypoxic to 89/90%, he is tachycardic to 130. Reevaluation(s) Reevaluation #1: CT angio chest negative for pulmonary embolism. Plan admission for acute hypoxic respiratory failure in the setting of COVID-19. Spoke with hospitalist, Deshaun BROWN Time: 20:25 Medications Administered Generic Name Dose Route Start Last Admin Trade Name Freq PRN Reason Stop Dose Admin Acetaminophen 650 mg 03/17/24 20:56 03/17/24 21:52 Acetaminophen 325 Mg Tablet PO 650 mg Q6H PRN Administration Pain, Mild (Pain Scale 1-3), fever or headache Enoxaparin Sodium 40 mg 03/17/24 21:00 03/17/24 21:52 Enoxaparin Sodium 40 Mg/0.4 Ml Syringe SUBCUT 40 mg Q24H MARIO ALBERTO Administration Azithromycin 500 mg/ Sodium 250 mls @ 125 mls/hr 03/17/24 21:15 03/18/24 01:34 Chloride IV Infused Q24H MARIO ALBERTO Infusion Melatonin 6 mg 03/17/24 20:56 03/17/24 21:53 Melatonin 3 Mg Tablet PO 6 mg BEDTIME PRN Administration Insomnia Sodium Chloride 3 ml 03/18/24 00:00 03/18/24 01:34 0.9 % Sodium Chloride Flush 3 Ml Syringe IVFLUSH Not Given QSHIFT MARIO ALBERTO Discontinued Medications Generic Name Dose Route Start Last Admin Trade Name Freq PRN Reason Stop Dose Admin Albuterol/Ipratropium 3 ml 03/17/24 16:34 03/17/24 16:36 Albuterol/Iprat 2.5/0.5mg 3 Ml Ampul.Neb INHALE 03/17/24 16:35 3 ml ONCE ONE Administration Ceftriaxone Sodium 1 gm/ 50 mls @ 100 mls/hr 03/17/24 16:13 03/17/24 16:51 Sodium Chloride IV 03/17/24 16:42 Infused ONCE ONE Infusion Sodium Chloride 2,052 mls @ 2,052 mls/hr 03/17/24 16:13 03/17/24 19:10 Ns IV 03/17/24 17:12 Infused .Q1H STA Infusion Iohexol 100 ml 03/17/24 17:57 03/17/24 17:57 Iohexol 350 Mg/Ml 100 Ml Infus..Btl IV 03/17/24 17:58 100 ml ONCE ONE Administration Methylprednisolone Sodium Succinate 80 mg 03/17/24 16:14 03/17/24 16:27 Methylprednisolone Sod Succ 125 Mg/2 Ml Vial IVPUSH 03/17/24 16:15 80 mg ONCE ONE Administration Medical Decision Making Medical Decision Making [facility] [place] Narrative: Patient is a 44-year-old male with past medical history hypertension, SULEMAN compliant with CPAP, elevated liver enzymes presenting to emergency department for evaluation of shortness of breath and recent persistent cough as per HPI. Overall we does not appear to be in acute distress, at rest not notably dyspneic 16:10- Sepsis alert was called, tachycardic in toxic, for sepsis due to pneumonia, will cover with Rocephin, sepsis fluid bolus ordered based on ideal body weight due to obesity with BMI 56. Lung sounds diminished bilaterally throughout, may be secondary to body habitus will trial albuterol nebulizer given his hypoxia, Will obtain CBC to evaluate for leukocytosis/ anemia, CMP and lipase to evaluate for abnormal electrolytes /abnormal renal function/ abnormal hepatic/biliary function, CT angio chest to exclude pulmonary embolism. Differential Diagnosis Differential Diagnoses: The differential diagnosis associated with the presentation includes (Pneumonia, pulmonary embolism, lower suspicion for ACS, viral syndrome) Admission/Observation Consideration of admission/observation: Escalation of care including admission/observation considered (See narrative above and course narrative) Lab Data [facility] [place] Lab Attestation statement: I reviewed the patient's lab results. CBC revealing a mild leukocytosis, no anemia, no thrombocytopenia. No electrolyte derangement. No BIANCA. COVID-19 positive. No lactic acidosis. 03/17/24 15:47 03/17/24 15:47 Labs: Lab Results 03/17/24 03/17/24 Range/Units 15:47 19:41 WBC 13.7 H (4.8-10.8) X10*3/uL RBC 4.90 (4.60-5.80) X10*6/uL Hgb 16.1 (14.0-18.0) g/dl Hct 45.7 (42.0-52.0) % MCV 93.3 (80.0-98.0) fL MCH 32.9 (27.0-33.0) pg MCHC 35.2 (31.0-36.0) g/dl RDW 13.2 (11.0-16.0) % Plt Count 282 (160-400) X10*3/uL MPV 9.9 (9.4-12.4) fL Immature Gran % (Auto) 0.4 (0.0-0.4) % Neut % (Auto) 80.3 H (45-73) % Lymph % (Auto) 8.8 L (20-40) % [place] % (Auto) 6.1 (2-11) % Eos % (Auto) 3.9 (0-4) % Baso % (Auto) 0.5 (0-2) % Lymph # (Auto) 1.2 (1.2-4.9) X10*3/uL [place] # (Auto) 0.8 (0.1-1.2) X10*3/uL Eos # (Auto) 0.5 H (0.0-0.4) X10*3/uL Baso # (Auto) 0.1 (0.0-0.2) X10*3/uL Abs Immat Gran (auto) 0.05 H (0.00-0.03) X10*3/uL Absolute Neuts (auto) 11.0 H (2.0-8.3) x10*3/uL Absolute Nucleated RBC 0.000 (0.0-0.012) X10*3/uL Nucleated RBC % (auto) 0.0 (0.0-0.2) /100WBC Sodium 138 (135-145) mmol/L Potassium 4.2 (3.3-5.1) mmol/L Chloride 104 (96-108) mmol/L Carbon Dioxide 24 (22-29) mmol/L Anion Gap 14 (12-20) BUN 17 H (9-16) mg/dL Creatinine 0.81 (0.5-1.4) mg/dL Estim Creat Clear Calc 177.5 Estimated GFR > 60 Random Glucose 121 H (60-115) mg/dL Lactic Acid 1.2 (0.5-2.0) mmol/L Calcium 10.3 H (8.4-10.2) mg/dL Total Bilirubin 0.7 (0.0-1.0) mg/dL AST 32 (5-37) U/L ALT 70 H (0-40) U/L Alkaline Phosphatase 100 (39-117) U/L Total Protein 8.4 H (6.5-8.0) g/dL Albumin 4.4 (3.5-5.0) g/dL Lipase 17 (8-78) U/L Urine Color Yellow Urine Appearance Clear Urine pH 5.5 (5.0-9.0) Ur Specific [place] 1.025 (1.005-1.025) Urine Protein Negative (Neg-Trace) mg/dL Urine Glucose (UA) Negative (Negative) mg/dL Urine Ketones Negative (Negative) mg/dL Urine Blood Negative (Negative) Urine Nitrite Negative (Negative) Ur Leukocyte Esterase Negative (Negative) Urine RBC 0-2 (0-2) /HPF Urine WBC 0-5 (0-5) /HPF Ur Squamous Epith Cells 0-2 (0-2) /HPF Urine Bacteria None Seen (None Seen) Hyaline Casts 0-2 (0-2) /LPF Influenza Type A (PCR) NEGATIVE (Negative) Influenza Type B (PCR) NEGATIVE (Negative) RSV RNA Qual (PCR) NEGATIVE (Negative) SARS-CoV-2 RNA (RT-PCR) POSITIVE A (Negative) Independent Interpretation I performed an independent interpretation of an: EKG Interpretation: Rate: 132 Rhythm:? Sinus tachycardia Griffin:? Normal P waves.? Normal LETY.?? Normal QRS complex.?? ST T wave :??No ST elevation, no ST depression, no T-wave inversions qTC: 385 prior studies:? None available for review The study has been interpreted contemporaneously by me. Radiology Impression Discussion of test interpretation with radiology: I have reviewed the radiologist's reading. Radiologist Impression: CT/CT angio chest PE protocol IMPRESSION: 1. No evidence of pulmonary emboli. 2. COPD with emphysema and bronchial thickening. 3. Splenomegaly and hepatic steatosis. Independent Historian Clinical information obtained from an independent historian. History obtained from or confirmed by: Spouse External Record Review External record reviewed: Outpatient record (Walk-in clinic visit 03/17/2024) and Prior outpatient radiology Chronic Conditions Patient?s care impacted by: Hypertension Discharge Plan Discharge Clinical Impression: Acute hypoxemic respiratory failure, COVID-19 Patient Disposition: Admitted As Inpatient
--- NOTE | 2024-03-17 15:19 | ECG_ITS ---
Test Reason : DISPENA Blood Pressure : / mmHG Vent. Rate : 132 BPM Atrial Rate : 132 BPM P-R Int : 172 ms QRS Dur : 070 ms QT Int : 260 ms P-R-T Axes : 040 015 050 degrees QTc Int : 385 ms Sinus tachycardia Septal infarct , age undetermined Abnormal ECG No previous ECGs available Referred By: Stefan Robert Electronically Signed By:NICOLE MOCK
--- NOTE | 2024-03-17 15:20 | MHC.EDTECH ---
This pct just assumed care of Patient ,vitals taken ,Pt was change into hospital attire ,Pt was hooked up to senior communications engineer ,ekg taken and was read by Provider ,blood drawn including both sets of blood culture and lactic acid ,rsv/covid swab collected and se4nt to lab .Patient at bedside .patient alert and oriented resting in bed ,call an within Pt reach .
[2024-03-17 15:59] LABS: MANUAL DIFF FLAG NO
[2024-03-17 16:01] LABS: Basophils Absolute Auto 0.1 X10*3/uL (0.0-0.2); Basophils Percent Auto 0.5 % (0-2); Eosinophils Absolute Auto 0.5 X10*3/uL (0.0-0.4); Eosinophils Percent Auto 3.9 % (0-4); Hematocrit 45.7 % (42.0-52.0); Hemoglobin 16.1 g/dl (14.0-18.0); Imm Gran Abs Auto 0.05 X10*3/uL (0.00-0.03); Imm Gran Pct Auto 0.4 % (0.0-0.4); Lymphocytes Absolute Auto 1.2 X10*3/uL (1.2-4.9); Lymphocytes Percent Auto 8.8 % (20-40); Mean Corpuscular HGB Conc 35.2 g/dl (31.0-36.0); Mean Corpuscular Hemoglobin 32.9 pg (27.0-33.0); Mean Corpuscular Volume 93.3 fL (80.0-98.0); Mean Platelet Volume 9.9 fL (9.4-12.4); Monocytes Absolute Auto 0.8 X10*3/uL (0.1-1.2); Monocytes Percent Auto 6.1 % (2-11); Neutrophils Percent Auto 80.3 % (45-73); Platelet Count 282 X10*3/uL (160-400); Red Cell Distribution Width 13.2 % (11.0-16.0); White Blood Count 13.7 X10*3/uL (4.8-10.8)
[2024-03-17 16:14] LABS: Lactic Acid 1.2 mmol/L (0.5-2.0)
[2024-03-17 16:20] LABS: Alanine Aminotransferase 70 U/L (0-40); Albumin Level 4.4 g/dL (3.5-5.0); Alkaline Phosphatase 100 U/L (39-117); Anion Gap 14 (12-20); Aspartate Amino Transferase 32 U/L (5-37); Bilirubin Total 0.7 mg/dL (0.0-1.0); Blood Urea Nitrogen 17 mg/dL (9-16); Calcium 10.3 mg/dL (8.4-10.2); Carbon Dioxide 24 mmol/L (22-29); Chloride 104 mmol/L (96-108); Creatinine Clr Calc Pharmacy 177.5; Estimated Glomerular Filt Rate > 60; Glucose Random 121 mg/dL (60-115); Lipase 17 U/L (8-78); Potassium 4.2 mmol/L (3.3-5.1); Sodium 138 mmol/L (135-145); Total Protein 8.4 g/dL (6.5-8.0)
[2024-03-17] MEDS: cefTRIAXone sodium 1 GM in 0.9 % Sodium Chloride 50 ML IV (16:21)
[2024-03-17] MEDS: 0.9 % Sodium Chloride 2,052 ML 2052 ML IV (16:27)
[2024-03-17] MEDS: methylPREDNISolone Sod Succ 125 MG/2 ML VIAL 80 MG IVPUSH (16:27)
[2024-03-17] MEDS: Albuterol/Iprat 2.5/0.5MG 3 ML AMPUL.NEB INHALE (16:36)
[2024-03-17 16:38] LABS: Influenza A PCR NEGATIVE (Negative); Influenza B PCR NEGATIVE (Negative); Resp Syncy Virus RNA Qual PCR NEGATIVE (Negative); SARS COV2 PCR INHOUSE POSITIVE (Negative)
[2024-03-17] MEDS: iohexoL 350 MG/ML 100 ML INFUS..BTL IV (17:57)
--- NOTE | 2024-03-17 19:19 | PC.NURSE ---
Assumed care of pt. Pt lying on stretcher, no acute distress at this time. Pt requesting food/drink. VSS at this time, requiring supplemental O2.
[2024-03-17 19:47] LABS: Appearance Urine Clear; Color Urine Yellow; Glucose Urine UA Negative (Negative); Leukocyte Esterase Urine Negative (Negative); Nitrite Urine Negative (Negative); PH 5.5 (5.0-9.0); Specific Gravity - Urine 1.025 (1.005-1.025); Urine Blood Negative (Negative); Urine Ketones Negative (Negative); Urine Protein Negative (Neg-Trace)
--- NOTE | 2024-03-17 20:00 | MHC.EDTECH ---
Patient had tuna sandwiches and gingerale for snack .
[2024-03-17 20:33] LABS: Bacteria Urine None Seen (None Seen); Hyaline Casts Urine 0-2 /LPF (0-2); RBC Urine 0-2 /HPF (0-2); Squamous Epithelial Cell Urine 0-2 /HPF (0-2); WBC Urine 0-5 /HPF (0-5)
--- NOTE | 2024-03-17 21:02 | P.HPHOSP_ITS ---
History of Present Illness Date of Service: 03/17/24 Attending physician on admission: Rosalie Shore Chief Complaint: sob, cough 44-year-old male with history of hypertension, SULEMAN compliant with CPAP who is morbidly obese with BMI greater than 56 presents to the ED earlier today for evaluation of productive cough ongoing for 1 week. He states he has had cough with yellow sputum production that started about 1 week ago and developed dyspnea on exertion wheezing last night. He has no known history of chronic lung disease. He also reports chest tightness that worsened with deep inspiration or cough. No fevers, chills, sore throat, congestion, abdominal pain, nausea, vomiting, diarrhea, lightheadedness, palpitations, or chest pain. Reports his girlfriend is sick with similar symptoms and was diagnosed with bronchitis last week. He was seen at an urgent care yesterday and was told he possibly has pneumonia and was sent home with prescription for prednisone and doxycycline as well as an albuterol inhaler. Since arrival to our ED, was noted to be hypoxic to 88% and has been maintaining oximetry 92% on 2 L. he has also been tachycardic to 120 in sinus rhythm. He has a leukocytosis of 13.7. Renal function and electrolyte levels are normal. Lactic acid 1.2. Urinalysis unremarkable. He is positive for COVID-19. Given tachycardia and dyspnea, CTA of the chest was ordered which was negative for pulmonary embolism but does show probable COPD with emphysema and bronchial wall thickening but no focal consolidations. There are however mosaic ground-glass opacities present but no masses. EKG shows sinus tachycardia, rate 130, no ST or depressions. In the ED, has been given DuoNeb, 2 L IVF, 1 g Rocephin, and methylprednisolone. Review of Systems 2 Review of Systems: Yes all other systems are reviewed and are negative PENDING SALE TO [facility] Medical History SULEMAN (obstructive sleep apnea) Impaired glucose metabolism HTN (hypertension) Surgical History S/P knee surgery S/P tonsillectomy Social History Housing: House Alcohol intake: current Alcohol intake frequency: a few times a week Alcohol type: beer Patient Tobacco Use Status: Never used Tobacco Tobacco use type: Cigar Smoked in Last 30 Days: No e-Cigarette/Vaping Use: Never Used Second Hand Smoke Exposure: No Use of substances other than those prescribed or required for medical reasons: No Advance Directives: No Advance Directives Information Provided: No service: No Current occupational status: employed Current occupation: [employer] Cognitive needs: No Hearing needs: No Vision needs: No Meds Allergies Allergy/AdvReac Type Severity Reaction Status Date / Time No Known Allergies Allergy Verified 03/17/24 15:20 Home Medications ?Medication ?Instructions ?Recorded ?Confirmed ?Last Taken ?Type epinephrine 0.125 mg/actuation 1 puff inhalation Q6H PRN 03/17/24 03/17/24 Unknown History aerosol inhaler (Primatene Mist) Shortness Of Breath Or Wheezing Physical Exam 2 Vital Signs and Narrative: Vital Signs: Last Vital Signs Temp 98.9 F 03/17/24 19:37 Pulse 115 H 03/17/24 19:37 Resp 17 03/17/24 19:37 BP 152/87 H 03/17/24 19:37 Pulse Ox 92 03/17/24 19:37 O2 Del Method Nasal Cannula 03/17/24 19:37 O2 Flow Rate 2 03/17/24 19:37 BMI result Body Mass Index 56.0 Constitutional - Awake and Alert, No apparent distress Eyes - PERRLA, EOMI Cardiovascular - S1S2, RRR, No edema Respiratory - Normal lung expansion, Normal respiratory effort, No respiratory distress, diminished lung sounds bilaterally Gastrointestinal - NT / ND; +BS; No rebound or guarding Extremities - no calf tenderness bilaterally, no swelling Skin - Warm/Dry Neurological - Alert & oriented x3 Psychological - Appropriate affect Results Labs 03/17/24 15:47 03/17/24 15:47 Labs: Laboratory Results - last 24 hr 03/17/24 03/17/24 15:47 19:41 MCV 93.3 MCH 32.9 MCHC 35.2 RDW 13.2 Plt Count 282 MPV 9.9 Immature Gran % (Auto) 0.4 Neut % (Auto) 80.3 H Lymph % (Auto) 8.8 L [place] % (Auto) 6.1 Eos % (Auto) 3.9 Baso % (Auto) 0.5 Lymph # (Auto) 1.2 [place] # (Auto) 0.8 Eos # (Auto) 0.5 H Baso # (Auto) 0.1 Abs Immat Gran (auto) 0.05 H Absolute Neuts (auto) 11.0 H Absolute Nucleated RBC 0.000 Nucleated RBC % (auto) 0.0 Anion Gap 14 Estim Creat Clear Calc 177.5 Estimated GFR > 60 Random Glucose 121 H Lactic Acid 1.2 Calcium 10.3 H Total Bilirubin 0.7 AST 32 ALT 70 H Alkaline Phosphatase 100 Total Protein 8.4 H Albumin 4.4 Lipase 17 Urine Color Yellow Urine Appearance Clear Urine pH 5.5 Ur Specific [place] 1.025 Urine Protein Negative Urine Glucose (UA) Negative Urine Ketones Negative Urine Blood Negative Urine Nitrite Negative Ur Leukocyte Esterase Negative Urine RBC 0-2 Urine WBC 0-5 Ur Squamous Epith Cells 0-2 Urine Bacteria None Seen Hyaline Casts 0-2 Influenza Type A (PCR) NEGATIVE Influenza Type B (PCR) NEGATIVE RSV RNA Qual (PCR) NEGATIVE SARS-CoV-2 RNA (RT-PCR) POSITIVE A Imaging Radiologist's Impressions: Impressions Chest CTA 03/17/24 16:22 IMPRESSION: 1. No evidence of pulmonary emboli. 2. COPD with emphysema and bronchial thickening. 3. Splenomegaly and hepatic steatosis. VTE: negative. Fleischner guidelines were followed. Electronically signed by: Peter Hall MD 03/17/2024 08:18 PM EDT RP Assessment and Plan (1) Acute hypoxemic respiratory failure: Status: Acute (2) COVID-19: Status: Acute Plan 44-year-old male with history of hypertension, SULEMAN compliant with CPAP who is morbidly obese with BMI greater than 56 admitted for further management of acute COVID-19 infection with acute hypoxemic respiratory failure likely complicated by obesity hypoventilation syndrome #COVID-19 infection with acute hypoxemic respiratory failure likely complicated by obesity hypoventilation syndrome -CTA chest negative for PE without any focal consolidations which shows some ground-glass opacities as well as evidence of COPD/emphysema -IV dexamethasone 6 mg daily (initiated 03/18-received 80 mg IV methylprednisolone in the ED) -DuoNebs q.4h while awake and p.r.n. -guaifenesin p.r.n. -IV azithromycin for pleiotropic effect (initiated 03/17) -continue supplemental O2 to maintain oximetry around 92%, wean as tolerated per protocol -recommend incentive spirometry # sinus tachycardia -CTA chest negative for PE -will monitor on telemetry. No further intervention at this time # SULEMAN -CPAP bedtime # hypertension -continue lisinopril-hydrochlorothiazide # morbid obesity with BMI greater than 56 -weight loss efforts discussed and encouraged DVT prophylaxis-Lovenox Full code Patient requires inpatient stay at least 2 midnights for management of COVID-19 infection with hypoxia requiring supplemental O2, IV steroids and close monitoring of respiratory status as well as hemodynamics Quality Stroke Does the patient have a stroke diagnosis?: No VTE Prior VTE?: No VTE Risk Level:: Medical - moderate - high VTE Device Contraindication: Treatment Not Indicated VTE Drug Contraindication: N/A - Med Ordered
--- NOTE | 2024-03-17 21:05 | PHA.MEDREC ---
Addendum entered by Ashwin Puente 03/17/24 21:09: reviewed Original Note: Pharmacy Consult ? Medication Reconciliation Pharmacy has completed the medication reconciliation. Spoke to patient to confirm med list. patient states he never started taking Albuterol sulfate 90 mcg inhaler, Benzonatate 100 mg, Prednisone 50 mg and Doxycycline hyc 100mg.
[2024-03-17] MEDS: Enoxaparin Sodium 40 MG/0.4 ML SYRINGE SUBCUT (21:52)
[2024-03-17] MEDS: Acetaminophen 325 MG TABLET 650 MG PO (21:52)
[2024-03-17] MEDS: Melatonin 3 MG TABLET 6 MG PO (21:53)
[2024-03-17] MEDS: Azithromycin 500 MG in 0.9 % Sodium Chloride 250 ML 125 MG IV (21:53)
--- NOTE | 2024-03-17 22:54 | MHC.EDTECH ---
2200 rounding done ,vitals taken ,Patient was moved to a hospital bed for comfort ,Patient belongings list done ,fresh pitcher of ice water given ,Patient awake watching television .call an within Pt reach .
[2024-03-18] VITALS (13 sets, daily range): BP systolic 126–152; BP diastolic 64–100; PULSE 91–108; RESP 14–20; TEMP 36.2–37.4; O2SAT 90–96
[2024-03-18 06:34] LABS: Basophils Percent Auto 0.1 % (0-2); Eosinophils Percent Auto 0.2 % (0-4); Hematocrit 43.9 % (42.0-52.0); Hemoglobin 15.2 g/dl (14.0-18.0); Imm Gran Abs Auto 0.06 X10*3/uL (0.00-0.03); Imm Gran Pct Auto 0.4 % (0.0-0.4); Lymphocytes Percent Auto 7.2 % (20-40); MANUAL DIFF FLAG NO; Mean Corpuscular HGB Conc 34.6 g/dl (31.0-36.0); Mean Corpuscular Hemoglobin 32.5 pg (27.0-33.0); Mean Platelet Volume 10.1 fL (9.4-12.4); Monocytes Absolute Auto 0.6 X10*3/uL (0.1-1.2); Monocytes Percent Auto 4.5 % (2-11); Neutrophils Absolute Auto 11.8 x10*3/uL (2.0-8.3); Neutrophils Percent Auto 87.6 % (45-73); Platelet Count 280 X10*3/uL (160-400); Red Blood Count 4.67 X10*6/uL (4.60-5.80); Red Cell Distribution Width 13.1 % (11.0-16.0); White Blood Count 13.5 X10*3/uL (4.8-10.8)
[2024-03-18 06:52] LABS: Anion Gap 15 (12-20); Blood Urea Nitrogen 13 mg/dL (9-16); Calcium 9.4 mg/dL (8.4-10.2); Carbon Dioxide 24 mmol/L (22-29); Chloride 103 mmol/L (96-108); Estimated Glomerular Filt Rate > 60; Glucose Random 120 mg/dL (60-115); Sodium 138 mmol/L (135-145)
--- NOTE | 2024-03-18 07:00 | PC.NURSE ---
Report taken from Jostin Hudson RN
[2024-03-18] MEDS: Albuterol/Iprat 2.5/0.5MG 3 ML AMPUL.NEB INHALE ×4 (07:07→18:47)
--- NOTE | 2024-03-18 07:30 | PC.NURSE ---
Pt resting comfortably at this time
[2024-03-18] MEDS: dexAMETHasone sod phosphate 4 MG/ML VIAL 6 MG IVPUSH (09:41)
--- NOTE | 2024-03-18 13:52 | MHC.CM.PN ---
Met with patient in regards to discharge planning. Patient lives with his girlfriend, ambulates independently and had no services prior to coming to the hospital. No services anticipated to be needed because patient is not homebound. Patient is on oxygen here at [facility] but not at baseline. PCP verified. Obs notice explained and signed. Patient's girlfriend will transport patient home when medically stable. Continue to monitor for d/c needs.
--- NOTE | 2024-03-18 14:20 | P.PNIM_ITS ---
Subjective Subjective Date of Service: 03/18/24 Interval History: Feeling tired, having frequent bouts of coughing, shortness of breath, denies fever, no chills, afebrile oxygenation 93% on 2 L. No acute events overnight. Review of Systems All other system reviewed and are negative. Physical Exam 2 Vital Signs: Vital Signs: Last Vital Signs Temp 98.1 F 03/18/24 09:39 Pulse 91 03/18/24 12:34 Resp 17 03/18/24 12:34 BP 130/64 03/18/24 12:34 Pulse Ox 93 03/18/24 12:34 O2 Del Method Nasal Cannula 03/18/24 12:34 O2 Flow Rate 2 03/18/24 12:34 BMI result Body Mass Index 56.0 Const: Other: General sitting comfortably in no acute distress. Neck supple no JVD. CVS regular rate rhythm, Respiratory lungs diminished breath sound , no respiratory distress Gastrointestinal abdomen soft, non tender, bowel sounds audible, no guarding , no rigidity. Extremities no edema. Neuro non focal. Skin no rash Psych appropriate affect Objective Data Active Medications Acetaminophen (Acetaminophen 325 Mg Tablet) 650 mg PO Q6H PRN PRN Reason: Pain, Mild (Pain Scale 1-3), fever or headache Last Admin: 03/17/24 21:52 Dose: 650 mg Documented By: OMID Albuterol/Ipratropium (Albuterol/Iprat 2.5/0.5mg 3 Ml Ampul.Neb) 3 ml INHALE Q4H PRN PRN Reason: Shortness of Breath/Wheezing Albuterol/Ipratropium (Albuterol/Iprat 2.5/0.5mg 3 Ml Ampul.Neb) 3 ml INHALE RQ4H WHILE AWAKE [facility] Last Admin: 03/18/24 11:07 Dose: 3 ml Documented By: SHANIA Calcium Carbonate (Calcium Carbonate 750 Mg Tab.Chew) 750 mg PO Q4H PRN PRN Reason: Heartburn Dexamethasone Sodium Phosphate (Dexamethasone Sod Phosphate 4 Mg/Ml Vial) 6 mg IVPUSH DAILY [facility] Last Admin: 03/18/24 09:41 Dose: 6 mg Documented By: BETHANIE Enoxaparin Sodium (Enoxaparin Sodium 40 Mg/0.4 Ml Syringe) 40 mg SUBCUT Q24H [facility] Last Admin: 03/17/24 21:52 Dose: 40 mg Documented By: OMID Guaifenesin (Guaifenesin 200 Mg/10 Ml 10 Ml Liquid) 10 ml PO Q6H PRN PRN Reason: Cough Azithromycin 500 mg/ Sodium (Chloride) 250 mls @ 125 mls/hr IV Q24H [facility] Last Infusion: 03/18/24 01:34 Dose: Infused Documented By: OMID Magnesium Hydroxide (Milk Of Magnesia 30 Ml Oral.Susp) 30 ml PO DAILY PRN PRN Reason: Constipation Melatonin (Melatonin 3 Mg Tablet) 6 mg PO BEDTIME PRN PRN Reason: Insomnia Last Admin: 03/17/24 21:53 Dose: 6 mg Documented By: OMID Sodium Chloride (0.9 % Sodium Chloride Flush 3 Ml Syringe) 3 ml IVFLUSH QSHIFT [facility] Last Admin: 03/18/24 07:33 Dose: Not Given Documented By: BETHANIE Non-Admin Reason: Previously Administered Labs 03/18/24 05:48 03/18/24 05:48 Labs: Laboratory Results - last 24 hr 03/17/24 03/17/24 03/18/24 15:47 19:41 05:48 MCV 93.3 94.0 MCH 32.9 32.5 MCHC 35.2 34.6 RDW 13.2 13.1 Plt Count 282 280 MPV 9.9 10.1 Immature Gran % (Auto) 0.4 0.4 Neut % (Auto) 80.3 H 87.6 H Lymph % (Auto) 8.8 L 7.2 L Trinity % (Auto) 6.1 4.5 Eos % (Auto) 3.9 0.2 Baso % (Auto) 0.5 0.1 Lymph # (Auto) 1.2 1.0 L Trinity # (Auto) 0.8 0.6 Eos # (Auto) 0.5 H 0.0 Baso # (Auto) 0.1 0.0 Abs Immat Gran (auto) 0.05 H 0.06 H Absolute Neuts (auto) 11.0 H 11.8 H Absolute Nucleated RBC 0.000 0.000 Nucleated RBC % (auto) 0.0 0.0 Anion Gap 14 15 Estim Creat Clear Calc 177.5 197.0 Estimated GFR > 60 > 60 Random Glucose 121 H 120 H Lactic Acid 1.2 Calcium 10.3 H 9.4 D Total Bilirubin 0.7 AST 32 ALT 70 H Alkaline Phosphatase 100 Total Protein 8.4 H Albumin 4.4 Lipase 17 Urine Color Yellow Urine Appearance Clear Urine pH 5.5 Ur Specific Egan 1.025 Urine Protein Negative Urine Glucose (UA) Negative Urine Ketones Negative Urine Blood Negative Urine Nitrite Negative Ur Leukocyte Esterase Negative Urine RBC 0-2 Urine WBC 0-5 Ur Squamous Epith Cells 0-2 Urine Bacteria None Seen Hyaline Casts 0-2 Influenza Type A (PCR) NEGATIVE Influenza Type B (PCR) NEGATIVE RSV RNA Qual (PCR) NEGATIVE SARS-CoV-2 RNA (RT-PCR) POSITIVE A Assessment and Plan (1) Acute hypoxemic respiratory failure: Status: Acute (2) COVID-19: Status: Acute Plan 44-year-old male with history of hypertension, SULEMAN compliant with CPAP who is morbidly obese with BMI greater than 56 admitted for further management of acute COVID-19 infection with acute hypoxemic respiratory failure likely complicated by obesity hypoventilation syndrome # sepsis due to COVID-19 infection with acute hypoxemic respiratory failure likely complicated by obesity hypoventilation syndrome -persistent shortness of breath and cough, no fevers, mild leukocytosis -CTA chest negative for PE without any focal consolidations which shows some ground-glass opacities as well as evidence of COPD/emphysema -IV dexamethasone 6 mg daily (initiated 03/18) -DuoNebs q.4h while awake and p.r.n. -add scheduled cough medication, vitamin-C 500 mg. -IV azithromycin for pleiotropic effect (initiated 03/17) -continue supplemental O2 to maintain oximetry around 92%, wean as tolerated , not on home oxygen -recommend incentive spirometry # sinus tachycardia -CTA chest negative for PE -heart rate improved # SULEMAN -CPAP bedtime # hypertension -stable BP, resume lisinopril-hydrochlorothiazide # morbid obesity with BMI greater than 56 -recommend low-calorie diet/counseling done DVT prophylaxis-Lovenox Full code Patient requires continued inpatient stay for management of COVID-19 infection with hypoxia requiring supplemental O2, IV steroids and close monitoring of respiratory status as well as hemodynamics Quality Stroke Does the patient have a stroke diagnosis?: No VTE Prior VTE?: No VTE Risk Level:: Medical - moderate - high VTE Device Contraindication: Treatment Not Indicated VTE Drug Contraindication: N/A - Med Ordered
[2024-03-18] MEDS: Ascorbic Acid 500 MG TABLET PO (15:53)
[2024-03-18] MEDS: guaiFENesin 200 MG/10 ML 10 ML LIQUID PO ×2 (15:53→21:35)
[2024-03-18] MEDS: Azithromycin 500 MG in 0.9 % Sodium Chloride 250 ML 125 MG IV (21:33)
[2024-03-18] MEDS: Enoxaparin Sodium 40 MG/0.4 ML SYRINGE SUBCUT (21:34)
[2024-03-18] MEDS: Melatonin 3 MG TABLET 6 MG PO (21:35)
[2024-03-19] VITALS (8 sets, daily range): BP systolic 132–141; BP diastolic 65–83; PULSE 73–95; RESP 16–20; TEMP 36.3–36.7; O2SAT 76–94
[2024-03-19] MEDS: Albuterol/Iprat 2.5/0.5MG 3 ML AMPUL.NEB INHALE (07:55)
[2024-03-19] MEDS: hydroCHLOROthiazide 25 MG TABLET PO (08:39)
[2024-03-19] MEDS: lisinopriL 20 MG TABLET PO (08:39)
[2024-03-19] MEDS: dexAMETHasone sod phosphate 4 MG/ML VIAL 6 MG IVPUSH (08:39)
[2024-03-19] MEDS: guaiFENesin 200 MG/10 ML 10 ML LIQUID PO (08:39)
[2024-03-19] MEDS: Ascorbic Acid 500 MG TABLET PO (08:39)
[2024-03-19] MEDS: 0.9 % Sodium Chloride Flush 3 ML SYRINGE IVFLUSH (08:40)
[2024-03-19] MEDS: Albuterol Sulfate 90 MCG 8 GM INHALER 2 PUFF INHALE (11:12)
--- NOTE | 2024-03-19 11:49 | MHC.CM.PN ---
DP: PT HAS BEEN MEDICALLY CLEARED FOR DC HOME, NO SERVICES. PT HAS OWN RIDE HOME
--- NOTE | 2024-03-19 13:39 | PM.DS ---
DS: Providers Provider Date of Service: 03/19/24 Date of admission: 03/17/24 20:56 Date of discharge: 03/19/24 Primary care physician: Sean Aguilar PA-C DS: Diagnosis Discharge Diagnosis (1) Acute hypoxemic respiratory failure: Status: Acute (2) COVID-19: Status: Acute DS: Summary Hospital Course Hospital Course: History of presenting illness: Date of Service: 03/17/24 Attending physician on admission: Rosalie Shore Chief Complaint: sob, cough 44-year-old male with history of hypertension, SULEMAN compliant with CPAP who is morbidly obese with BMI greater than 56 presents to the ED earlier today for evaluation of productive cough ongoing for 1 week. He states he has had cough with yellow sputum production that started about 1 week ago and developed dyspnea on exertion wheezing last night. He has no known history of chronic lung disease. He also reports chest tightness that worsened with deep inspiration or cough. No fevers, chills, sore throat, congestion, abdominal pain, nausea, vomiting, diarrhea, lightheadedness, palpitations, or chest pain. Reports his girlfriend is sick with similar symptoms and was diagnosed with bronchitis last week. He was seen at an urgent care yesterday and was told he possibly has pneumonia and was sent home with prescription for prednisone and doxycycline as well as an albuterol inhaler. Since arrival to our ED, was noted to be hypoxic to 88% and has been maintaining oximetry 92% on 2 L. he has also been tachycardic to 120 in sinus rhythm. He has a leukocytosis of 13.7. Renal function and electrolyte levels are normal. Lactic acid 1.2. Urinalysis unremarkable. He is positive for COVID-19. Given tachycardia and dyspnea, CTA of the chest was ordered which was negative for pulmonary embolism but does show probable COPD with emphysema and bronchial wall thickening but no focal consolidations. There are however mosaic ground-glass opacities present but no masses. EKG shows sinus tachycardia, rate 130, no ST or depressions. In the ED, has been given DuoNeb, 2 L IVF, 1 g Rocephin, and methylprednisolone. Hospital course: 44-year-old male with history of hypertension, SULEMAN compliant with CPAP ,morbidly obese with BMI greater than 56 admitted for further management of sepsis due to acute COVID-19 infection with acute hypoxemic respiratory failure likely complicated by obesity hypoventilation syndrome,CTA chest negative for PE without any focal consolidations which shows some ground-glass opacities as well as evidence of COPD/emphysema, patient treated with IV dexamethasone 6 mg daily ,DuoNebs q.4h while awake and p.r.n.,cough medication, vitamin-C 500 mg and IV azithromycin for pleiotropic effect patient responded well to above treatment hypoxia resolved, therefore being discharged home on dexamethasone for 7 more days, azithromycin 500 mg to finish total 5 day course of antibiotic and recommend to use albuterol inhaler 2 puffs as needed for shortness of breath in regard to abdominal CT chest he is recommended outpatient follow-up with his primary case management social worker Dr. Torres, he has been continued on CPAP at night, he was noted to have mild sinus tachycardia likely due to hypoxia now resolved. Prior to discharge had home O2 eval and did not qualify for home oxygen. In regard to hypertension recommend to continue lisinopril-hydrochlorothiazide. Time Attestation Discharge Coordination Time (in mins): 36 Quality: Safe Use of Opioids Does Pt have an Active Cancer Diagnosis on the Problem List?: No Quality: Stroke Does the patient have a stroke diagnosis?: No Physical Exam Vital Signs: Vital Signs: Last Vital Signs Temp 98.0 F 03/19/24 12:00 Pulse 81 03/19/24 12:00 Resp 20 03/19/24 12:00 BP 138/65 03/19/24 12:00 Pulse Ox 76 L 03/19/24 12:00 O2 Del Method Room Air 03/19/24 12:00 O2 Flow Rate 94 03/19/24 03:23 BMI result Body Mass Index 56.0 Const: Other: General sitting comfortably in no acute distress. Neck supple no JVD. CVS regular rate rhythm, Respiratory lungs scattered rhonchi, no respiratory distress Gastrointestinal abdomen soft, non tender, bowel sounds audible, no guarding , no rigidity. Extremities no edema. Neuro non focal. Skin no rash Psych appropriate affect DS: Data Data Completed and Pending Labs on day of discharge: Preliminary micro results at discharge 03/17/24 15:47 Blood Culture - Preliminary Blood - Venous No growth after 24 hours. 03/17/24 15:46 Blood Culture - Preliminary Blood - Venous No growth after 24 hours. Discharge Plan Discharge Anticipated Discharge Date/Time: 03/19/24 11:34 Patient Disposition: Home, Self-Care Discharge Diagnosis: Acute hypoxic respiratory failure due to COVID Referrals: Sean Aguilar PA-C [Primary Care Provider] - 1 Week Discharge Medications: New ascorbic acid (vitamin C) [Vitamin C] 500 mg Tablet 500 mg PO DAILY Qty: 30 0RF guaifenesin 100 mg/5 mL Liquid 200 mg PO TID Qty: 473 0RF Rx Instructions: take for 3 days than as needed for cough albuterol sulfate [Ventolin HFA] 90 mcg/actuation Hfa Aerosol Inhaler 2 puff inhalation RQ4H PRN (Reason: sob) Qty: 8.5 0RF dexamethasone 6 mg tablet 6 mg PO DAILY Qty: 7 0RF azithromycin 500 mg tablet 500 mg PO DAILY 3 Days Qty: 3 0RF Continued Primatene Mist 0.125 mg/actuation Hfa Aerosol Inhaler 1 puff INHALATION Q6H PRN (Reason: Shortness Of Breath Or Wheezing) Rx Instructions: may repeat once after 1 minute lisinopril-hydrochlorothiazide 20-25 mg tablet 1 tab PO DAILY 30 Days Qty: 30 3RF Discharge Orders: Discharge Order (Routine); Ordered 03/19/24 Ordered By: Renan Lau Diet: Advance to usual diet Activity on Discharge: As tolerated Stand Alone Forms: Patient Portal Discharge page Print Language: Welsh Care Plan Goals: Hypoxia resolved Take dexamethasone 6 mg tablet for 7 more days Take azithromycin 500 mg for 3 more days Take cough medications for 3 days scheduled and then as needed for persistent cough Use albuterol 2 puffs as needed for shortness of breath may repeat every 4 hours as needed. Health Concerns: Obstructive sleep apnea continue CPAP Plan of Treatment: Follow-up with primary care physician and pulmonology Dr Torres call for appointment Assessment: As above
== END 2024-03-19 13:30 | disposition home or self-care (01) | DRG 871 ==
LOC: HO.ED 16:28 → HO.EDOVER 21:22 → HO.IMC 03-18 15:08
PROVIDERS: Physician Assistant; Admitting Provider Physician Assistant; Emergency Provider Internal Medicine; PCP Physician Assistant; Visit Provider Hospitalist
DX: A41.89 Other specified sepsis (principal); J96.01 Acute respiratory failure with hypoxia; U07.1 COVID-19; E66.2 Morbid (severe) obesity with alveolar hypoventilation; Z68.43 Body mass index [BMI] 50.0-59.9, adult; R00.0 Tachycardia, unspecified; I10 Essential (primary) hypertension; Z79.899 Other long term (current) drug therapy
CPT/HCPCS: 0241U; 36415; 71275; 80048; 80053; 81001; 83605; 83690; 85025; 87040; 93005; 94640; 94660; 99285; J0456; J0696; J1100; J1650; J2919; Q9967

== ENCOUNTER → 2024-03-17 20:56 | Outpatient (BNV) | payer OTHER, SELFPAY | PROVIDERS: Admitting Provider Physician Assistant; Emergency Provider Internal Medicine; PCP Physician Assistant; Visit Provider Physician Assistant | DX: J96.01 Acute respiratory failure with hypoxia (principal); U07.1 COVID-19; R00.0 Tachycardia, unspecified | CPT/HCPCS: 99223; 99233; 99239 ==

== ENCOUNTER 2024-04-02 14:21 | Outpatient (AMB) | payer OTHER, SELFPAY ==
[2024-04-02 14:24] VITALS: BP 142/80; PULSE 97; O2SAT 90; BMI 55.6
--- NOTE | 2024-04-02 14:24 | A.OFFPC_ITS ---
Vital Signs 04/02/24 14:24 Height 5 ft 8 in Weight 366 lb BMI 55.6 BP 142/80 H Blood Pressure Location Lt brachial Position Sitting Pulse 97 Pulse Source Pulse Oximeter Pulse Oximetry (%) 90 L Oxygen Delivery Method Room Air Intake Visit Reasons: Hypoxia 03/19 [employer] Deburrer Required: No Accompanied by: Self / Same As Patient Allergies No Known Allergies Allergy (Verified 04/02/24 14:25) Tobacco use date assessed: 02/27/24 Dental Screening Dental Screen Date: 09/04/23 HPI TCM TCM Information Date of Discharge 03/19/24 Discharged From [facility] HPI Comments History of Present Illness Details 44 y/o obese male patient who presents t o the clinic today for HDF. Pt was admitted at [facility] on 03/17/24 for Pneumonia and COVID 19 infection. He was discharged home 03/19/24 on Oral Abx. Today reports feeling 100% better. Denies Hypoxia, Dyspnea or cough. [facility] Medical History SULEMAN (obstructive sleep apnea) Impaired glucose metabolism HTN (hypertension) Surgical History S/P knee surgery S/P tonsillectomy Social History Household Members: Significant Other Housing: House Do you presently have visiting nurse or other home services: No Alcohol intake: current Alcohol intake frequency: a few times a week Alcohol type: beer Patient Tobacco Use Status: Never used Tobacco Tobacco use type: Cigar e-Cigarette/Vaping Use: Never Used Second Hand Smoke Exposure: No service: No Current occupational status: employed Current occupation: [employer] Cognitive needs: No Hearing needs: No Vision needs: No Questionnaire PHQ-9 Over the last 2 weeks, how often have you been bothered by any of the following problems? 1. Little interest or pleasure in doing things: not at all 2. Feeling down, depressed, or hopeless: not at all 3. Trouble falling or staying asleep, or sleeping too much: not at all 4. Feeling tired or having little energy: not at all 5. Poor appetite or overeating: not at all 6. Feeling bad about yourself - or that you are a failure or have let yourself or your family down: not at all 7. Trouble concentrating on things, such as reading the newspaper or watching television: not at all 8. Moving or speaking so slowly that other people could have noticed. Or the opposite - being so fidgety or restless that you have been moving around a lot more than usual: not at all 9. Thoughts that you would be better off or of hurting yourself in some way: not at all Total score: 0 Depression Screening Interpretation: Negative Depression Screening Done: Yes 56075 - PHQ-9 Billing: Yes Source: Developed by Drs. Juan Borjas, Connie Keita, Obed Lacey and colleagues, with an educational izabel from [employer]. Thrive Questionnaire Date Thrive assessed: 03/18/24 AUDIT C Alcohol Use Questionnaire (AUDIT-C) 1. How often do you have a drink containing alcohol?: 2-4 times a month 2. How many drinks containing alcohol do you have on a typical day when you are drinking?: 3 or 4 3. How often do you have six or more drinks on one occasion?: Never Total Score: 3 JOSSELINE-7 AMB Questionnaire JOSSELINE-7 Date JOSSELINE - 7 assessed: 09/04/23 Source: Developed by Drs. Juan Borjas, Connie Keita, Obed Lacey and colleagues, with an educational izabel from [employer]. Review of Systems Const All systems reviewed & are unremarkable except as noted in HPI and below Physical exam (Primary Care) Vital Signs: Last Vital Signs Pulse 97 04/02/24 14:24 BP 142/80 H 04/02/24 14:24 Pulse Ox 90 L 04/02/24 14:24 Oxygen Delivery Method Room Air 04/02/24 14:24 BMI result Body Mass Index 55.6 Tobacco/Smoking Status: Tobacco use Status Tobacco use date assessed 02/27/24 04/02/24 14:24 Patient Tobacco Use Status Never used Tobacco 04/02/24 14:24 Tobacco use type Cigar 04/02/24 14:24 e-Cigarette/Vaping Use Never Used 04/02/24 14:24 PHQ-9: PHQ-9 Score PHQ-9: Total score 0 04/02/24 14:25 Depression Screening Interpretation: Negative Thrive Assessment: Date of Thrive Assessment Date Thrive assessed 03/18/24 04/02/24 14:24 Const General: cooperative and no acute distress Nutritional Appearance: obese Orientation/consciousness: patient oriented x3 Resp Effort & Inspection: normal respiratory effort and able to speak in complete sentences Auscultation: clear to auscultation bilaterally, no crackles, no rales, no rhonchi and no wheezes Cardio Heart sounds: S1 normal heart sound present and S2 normal heart sound present GI Inspection: Yes Abdominal panniculus present and Yes obesity Neuro General: patient oriented x3, gait normal and moves all extremities Psych Speech and movement: Normal speech and movement present Coding Level of Care Code TCM Mod MDM <= 7 Days Diagnoses COVID-19 U07.1 Acute hypoxemic respiratory failure J96.01 Morbidly obese E66.01 Time Spent (min) 20 Comment Spent reviewing hospital notes and Patient education. Assessment & Plan Assessment & Plan (1) COVID-19: Code(s): U07.1 - COVID-19 Category: Medical Plan: Resolved. (2) Acute hypoxemic respiratory failure: Code(s): J96.01 - Acute respiratory failure with hypoxia Plan: Resolved. (3) Morbidly obese: Code(s): E66.01 - Morbid (severe) obesity due to excess calories Plan: Had an extensive discussion with Patient regarding weight loss and lifestyle changes. He is already working with a Technical Services Coordinator.
== END 2024-04-02 15:09 | disposition home or self-care (01) ==
PROVIDERS: PCP Physician Assistant; Visit Provider Nurse Practitioner Family
DX: U07.1 COVID-19 (principal); J96.01 Acute respiratory failure with hypoxia; E66.813 Obesity, class 3; Z68.43 Body mass index [BMI] 50.0-59.9, adult

== ENCOUNTER → 2024-04-02 14:21 | Outpatient (BNVA) | payer OTHER, SELFPAY | PROVIDERS: PCP Physician Assistant; Visit Provider Nurse Practitioner Family ==

== ENCOUNTER 2024-07-29 10:51 | Outpatient (AMB) | payer OTHER, SELFPAY ==
[2024-07-29 11:02] VITALS: BP 122/84; PULSE 85; O2SAT 96; BMI 57.6
--- NOTE | 2024-07-29 11:02 | MHC.PC.OV ---
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 Required: No Accompanied by: Self / Same As Patient Allergies No Known Allergies Allergy (Verified 07/29/24 11:02) Medication List - Last Reconciled 07/29/24 by Sean Aguilar PA-C albuterol sulfate 90 mcg/actuation (Ventolin HFA) 2 puffs inhalation RQ4H PRN ascorbic acid (vitamin C) (Vitamin C) 500 mg PO DAILY epinephrine 0.125 mg/actuation (Primatene Mist) 1 puff inhalation Q6H PRN lisinopril-hydrochlorothiazide 20-25 mg 1 tab PO DAILY 30 days Tobacco use date assessed: 07/29/24 Dental Screening Dental Screen Date: 07/29/24 Did you have a dental visit in the last 12 months?: No Did you have a dental problem in the last 6 months where you did not have access to dental care?: No Was dental information given to patient?: Patient has dentist HPI F/U HTN HPI Details Patient is a 44-year-old male here today for blood pressure med follow-up. At last visit we discussed his weight and blood pressure. We increased his hydrochlorothiazide 25 mg. Today's blood pressure much improved. Has lost a few lb since last office visit. Concern--> over the last 2 days having upper respiratory nasal congestion watery eyes and a mild cough. Does have wheezing from time time. Of note Does have a history pneumonia CLASS 3 OBESITY: Unfortunately has gained weight since last office visit. He reports he is much more physically inactive due to a right ankle injury and recently diagnosed with a melanoma over his right leg that has underwent Mohs procedure. He has unfortunately stopped speaking with a dietitian. He had plans on getting back to his regular diet and being more physically active. .. Obstructive sleep apnea: Continues to use CPAP machine on a nightly basis with good effect. We have discuss the possibility of starting a GLP 1 to help him with weight reduction and trying to control his obstructive sleep apnea [facility] Medical History Impaired glucose metabolism HTN (hypertension) SULEMAN (obstructive sleep apnea) Surgical History S/P knee surgery S/P tonsillectomy Social History Household Members: Significant Other Housing: House Do you presently have visiting nurse or other home services: No Alcohol intake: current Alcohol intake frequency: a few times a week Alcohol type: beer Patient Tobacco Use Status: Never used Tobacco Tobacco use type: Cigar e-Cigarette/Vaping Use: Never Used Second Hand Smoke Exposure: No service: No Current occupational status: employed Current occupation: [employer] Cognitive needs: No Hearing needs: No Vision needs: No Questionnaire PHQ-9 Over the last 2 weeks, how often have you been bothered by any of the following problems? 1. Little interest or pleasure in doing things: not at all 2. Feeling down, depressed, or hopeless: not at all 3. Trouble falling or staying asleep, or sleeping too much: not at all 4. Feeling tired or having little energy: not at all 5. Poor appetite or overeating: not at all 6. Feeling bad about yourself - or that you are a failure or have let yourself or your family down: not at all 7. Trouble concentrating on things, such as reading the newspaper or watching television: not at all 8. Moving or speaking so slowly that other people could have noticed. Or the opposite - being so fidgety or restless that you have been moving around a lot more than usual: not at all 9. Thoughts that you would be better off or of hurting yourself in some way: not at all Total score: 0 Depression Screening Interpretation: Negative Depression Screening Done: Yes 20905 - PHQ-9 Billing: Yes Source: Developed by Drs. Juan Borjas, Connie Keita, Obed Lacey and colleagues, with an educational izabel from [employer]. Thrive Questionnaire Date Thrive assessed: 07/29/24 I am a: Patient What is your living situation today?: I have a steady place to live Within the past 12 months, did the food you bought not last and you didn't have the money to get more?: Never true Within the past 12 months, did you worry whether your food would run out before you got money to buy more?: Never true Do you have trouble paying for medicines?: No Do you have trouble getting transportation to medical appointments?: No Do you have trouble paying your heating and electricity bill?: No Do you have trouble taking care of your child, family member or friend?: No Do you have trouble with day-to-day activities such as bathing, preparing meals, shopping, managing finances, etc.?: No Are you currently unemployed and looking for a job?: No Are you interested in more education?: No Please select the resources that you would like help with: None Currently or been in a relationship where the following occur: No concerns reported THRIVE Score: 0 AUDIT C Alcohol Use Questionnaire (AUDIT-C) 1. How often do you have a drink containing alcohol?: 2-4 times a month 2. How many drinks containing alcohol do you have on a typical day when you are drinking?: 3 or 4 3. How often do you have six or more drinks on one occasion?: Never Total Score: 3 JOSSELINE-7 AMB Questionnaire JOSSELINE-7 Date JOSSELINE - 7 assessed: 07/29/24 Feeling nervous, anxious, or on edge: 0 = Not at all Not being able to stop or control worryin = Not at all Worrying too much about different things: 0 = Not at all Trouble relaxin = Not at all Being so restless that it is hard to sit still: 0 = Not at all Becoming easily annoyed or irritable: 0 = Not at all Feeling afraid as if something awful might happen: 0 = Not at all Total JOSSELINE-7 score (0-4 normal; 5-9 mild; 10-14 moderate; 15-21 severe): 0 Source: Developed by Drs. Juan Borjas, Connie Keita, Obed Lacey and colleagues, with an educational izabel from [employer]. JOSSELINE-7 Assessment Billing JOSSELINE-7 Assessment Tool: JOSSELINE-7 Assessment 61384 Review of Systems Const Denies headache(s) Eyes Denies loss of vision ENT Denies vertigo, Denies dizziness, Denies headache(s), Reports nasal discharge and Denies sore throat Card Denies chest pain, Denies leg edema and Denies lightheadedness Resp Reports cough, Denies hemoptysis and Denies wheezing GI Denies abdominal pain, Denies melena, Denies constipation, Denies diarrhea and Denies vomiting Denies dysuria, Denies urinary frequency and Denies urinary urgency Musc Denies arthralgias, Denies joint swelling, Denies numbness and Denies tingling Neuro Denies Abnormal speech present, Denies behavioral changes, Denies vertigo, Denies dizziness, Denies headache(s), Denies loss of vision, Denies memory loss, Denies numbness and Denies tingling Psych Denies anxiety, Denies behavioral changes, Denies depression, Denies memory loss and Denies panic attacks Rashard/Lymph Denies easy bleeding and Denies easy bruising Aller/Immun Denies wheezing Physical exam (Primary Care) Vital Signs: Last Vital Signs Pulse 85 07/29/24 11:02 BP 122/84 07/29/24 11:02 Pulse Ox 96 07/29/24 11:02 Oxygen Delivery Method Room Air 07/29/24 11:02 BMI result Body Mass Index 57.6 BMI Assessment/Plan discussion: High BMI High, discussed plan: lifestyle, weight reduction, dietary and physical activity Tobacco/Smoking Status: Tobacco use Status Tobacco use date assessed 07/29/24 07/29/24 11:08 Patient Tobacco Use Status Never used Tobacco 07/29/24 11:08 Tobacco use type Cigar 07/29/24 11:08 e-Cigarette/Vaping Use Never Used 07/29/24 11:08 PHQ-9: PHQ-9 Score PHQ-9: Total score 0 07/29/24 11:24 Depression Screening Interpretation: Negative Thrive Assessment: Date of Thrive Assessment Date Thrive assessed 07/29/24 07/29/24 11:08 Currently or been in a relationship where the following occur: No concerns reported Const General: healthy appearing, no acute distress, alert and awake Nutritional Appearance: well nourished Orientation/consciousness: oriented to person, oriented to place and oriented to time HENMT Ears: TM's normal bilaterally General nose exam: Normal nasal mucous membranes and turbinates present Eyes Conjunctivae: conjunctivae normal Sclerae: sclerae normal Pupils: Equal, round and reactive pupils present Neck Neck: Yes no lymphadenopathy and Yes no JVD Thyroid: Thyroid normal Carotids: no bruits Resp Effort & Inspection: normal respiratory effort and not tachypneic Auscultation: no crackles, no rales, no rhonchi and wheezes Cardio Rate: regular rate Rhythm: regular rhythm Heart sounds: no murmurs and normal S1 and S2 GI Palpation (GI): Soft to palpation, nontender, no hepatomegaly and no splenomegaly Auscultation: normal bowel sounds Skin General skin exam: no rashes or lesions noted and dry skin Neuro General: oriented to person, oriented to place and oriented to time Cranial nerves: Yes Equal, round and reactive pupils present Speech: No Abnormal speech present Gait exam (Neuro): Normal gait present Motor exam (neuro): no tremor noted Extrem Right upper extremity: full ROM Left upper extremity: full ROM Right lower extremity: full ROM; no edema Left lower extremity: full ROM; no edema Psych Mental Status: mental status grossly normal Speech and movement: Normal speech and movement present Affect: normal affect Attitude: cooperative Thought process: Normal thought process present Coding Level of Care Code Est Pt Level 4 (00585) Diagnoses Primary hypertension I10 Hypertension type: primary hypertension Class 3 obesity E66.813 SULEMAN (obstructive sleep apnea) G47.33 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 C43.71 Laterality: right Melanoma location: lower extremity including hip Viral upper respiratory tract infection J06.9 URI type: unspecified viral URI Additional Codes PHQ-9 - 63810 - PHQ-9 Billing: Yes ([id number]) JOSSELINE-7 Assessment Billing - JOSSELINE-7 Assessment Tool: JOSSELINE-7 Assessment 40175 ([id number]) Assessment & Plan Assessment & Plan (1) HTN (hypertension): Code(s): I10 - Essential (primary) hypertension Category: Medical Qualifiers: Hypertension type: primary hypertension Qualified Code(s): I10 - Essential (primary) hypertension Plan: Patient's blood pressure acceptable today in office. Will continue current dose lisinopril hydrochlorothiazide with goal blood pressure to remain below 140/90 (2) Class 3 obesity: Code(s): E66.813 - Obesity, class 3 Category: Medical Plan: Unfortunately patient gained weight since last office visit. Has been fairly inactive over the last month and a half due to getting surgery in his leg for melanoma and injuring his foot. He plans on getting more physically active returning back to work and getting back on a good diet. We did discuss the possibility was trying a GLP 1 though will help him with his obstructive sleep apnea and weight reduction. (3) SULEMAN (obstructive sleep apnea): Code(s): G47.33 - Obstructive sleep apnea (adult) (pediatric) Category: Medical Plan: As above- continues to use CPAP machine on a nightly basis good effect. (4) Melanoma: Code(s): C43.9 - Malignant melanoma of skin, unspecified Category: Medical Qualifiers: Laterality: right Melanoma location: lower extremity including hip Qualified Code(s): C43.71 - Malignant melanoma of right lower limb, including hip Plan: Recently found to have melanoma over his right lower leg. Did undergo a Mohs procedure in currently healing. (5) URI (upper respiratory infection): Code(s): J06.9 - Acute upper respiratory infection, unspecified Category: Medical Qualifiers: URI type: unspecified viral URI Qualified Code(s): J06.9 - Acute upper respiratory infection, unspecified Plan: Patient with recent symptoms of cough, wheeze and nasal congestion. Likely viral though will supply patient with an antibiotic in case symptoms worsen. Has had pneumonia in the past that required hospitalization. Orders: Orders Complete Blood Count no Diff 07/29/24 I10 - Essential (primary) hypertension Microalbumin, Random (w Creat) 07/29/24 I10 - Essential (primary) hypertension Comprehensive [place]. Panel Fast 07/29/24 I10 - Essential (primary) hypertension Hemoglobin A1c 07/29/24 R73.09 - Other abnormal glucose Medications: New amoxicillin-pot clavulanate 875-125 mg 1 tab PO BID 14 tabs 0RF 7 days J06.9 - Acute upper respiratory infection, unspecified
== END 2024-07-29 11:36 | disposition home or self-care (01) ==
PROVIDERS: PCP Physician Assistant; Visit Provider Physician Assistant
DX: I10 Essential (primary) hypertension (principal); E66.813 Obesity, class 3; C43.71 Malignant melanoma of right lower limb, including hip; Z68.43 Body mass index [BMI] 50.0-59.9, adult; G47.33 Obstructive sleep apnea (adult) (pediatric); J06.9 Acute upper respiratory infection, unspecified

== ENCOUNTER → 2024-07-29 10:51 | Outpatient (BNVA) | payer OTHER, SELFPAY | PROVIDERS: PCP Physician Assistant; Visit Provider Physician Assistant | DX: I10 Essential (primary) hypertension (principal); E66.813 Obesity, class 3; Z68.43 Body mass index [BMI] 50.0-59.9, adult; G47.33 Obstructive sleep apnea (adult) (pediatric); C43.71 Malignant melanoma of right lower limb, including hip; J06.9 Acute upper respiratory infection, unspecified; Z79.899 Other long term (current) drug therapy; Z99.89 Dependence on other enabling machines and devices | CPT/HCPCS: 96127 ==

== ENCOUNTER 2024-12-16 07:47 | Outpatient (REF) | payer OTHER, SELFPAY ==
[2024-12-16 10:14] LABS: Hemoglobin A1C 150.5294 umol/L; Total Hemoglobin (HGBA1C) 3774.6269 umol/L
[2024-12-16 10:15] LABS: Hematocrit 41.7 % (42.0-52.0); Hemoglobin 14.3 g/dl (14.0-18.0); Mean Corpuscular HGB Conc 34.3 g/dl (31.0-36.0); Mean Corpuscular Hemoglobin 32.3 pg (27.0-33.0); Mean Corpuscular Volume 94.1 fL (80.0-98.0); NRBC Abs Auto 0.000 X10*3/uL (0.0-0.012); NRBC Pct Auto 0.0 /100WBC (0.0-0.2); Platelet Count 254 X10*3/uL (160-400); Red Blood Count 4.43 X10*6/uL (4.60-5.80); White Blood Count 9.6 X10*3/uL (4.8-10.8)
[2024-12-16 10:19] LABS: Alanine Aminotransferase 79 U/L (0-40); Albumin Level 4.2 g/dL (3.5-5.0); Alkaline Phosphatase 86 U/L (39-117); Anion Gap 13 (12-20); Aspartate Amino Transferase 41 U/L (5-37); Blood Urea Nitrogen 19 mg/dL (9-16); Calcium 9.1 mg/dL (8.4-10.2); Carbon Dioxide 28 mmol/L (22-29); Chloride 99 mmol/L (96-108); Estimated Glomerular Filt Rate > 60; Potassium 3.8 mmol/L (3.3-5.1); Sodium 136 mmol/L (135-145); Total Protein 7.5 g/dL (6.5-8.0)
[2024-12-16 10:50] LABS: Microalbum/Creatinine Ratio Ur 3.9 ug/mg cr (<30)
== END 2024-12-16 07:48 | disposition home or self-care (01) ==
LOC: HO.HMGCLDS 07:47
PROVIDERS: PCP Physician Assistant; Visit Provider Physician Assistant
DX: I10 Essential (primary) hypertension (principal); R73.09 Other abnormal glucose
CPT/HCPCS: 36415; 80053; 82043; 82570; 83036; 85027

== ENCOUNTER 2024-12-18 04:15 | Emergency (ER) | payer OTHER, SELFPAY ==
--- NOTE | ~2024-12-18 | CT_ITS ---
CLINICAL HISTORY: right flank pain CT abdomen and pelvis without contrast Comparison: None provided Findings: No consolidation or effusion. There is hepatic steatosis and hepatomegaly. There is splenomegaly. Gallbladder is unremarkable. There is no evidence of urolithiasis or obstructive uropathy. The rest of the solid organs are unremarkable. No bowel obstruction, pneumoperitoneum, or pneumatosis. Pelvic contents unremarkable. Normal appendix. The bones are intact. A relatively well-defined lesion is seen in the anterior segment of the right lobe measuring 2.5 cm. This demonstrates increased density relative to the fatty parenchyma. No other focal lesions are identified. IMPRESSION: 1. Hepatic steatosis. 2. Hepatosplenomegaly. 3. Suspect circumscribed lesion in the anterior segment of the right lobe measuring 2.5 cm. While this could represent a focus of fatty sparing a true mass is not excluded. Please obtain a dedicated hepatic protocol CT scan as an outpatient. This document has been electronically signed by: Carl Meier MD on 12/18/2024 09:17:15
[2024-12-18 04:19] VITALS: BP 158/91; PULSE 93; RESP 20; TEMP 36.8; O2SAT 95; BMI 59.7
[2024-12-18 04:36] LABS: Hematocrit 42.2 % (42.0-52.0); Hemoglobin 14.8 g/dl (14.0-18.0); Imm Gran Abs Auto 0.05 X10*3/uL (0.00-0.03); Imm Gran Pct Auto 0.5 % (0.0-0.4); Lymphocytes Absolute Auto 2.9 X10*3/uL (1.2-4.9); MANUAL DIFF FLAG NO; Mean Corpuscular HGB Conc 35.1 g/dl (31.0-36.0); Mean Corpuscular Hemoglobin 32.6 pg (27.0-33.0); Mean Corpuscular Volume 93.0 fL (80.0-98.0); NRBC Abs Auto 0.000 X10*3/uL (0.0-0.012); NRBC Pct Auto 0.0 /100WBC (0.0-0.2); Platelet Count 254 X10*3/uL (160-400); Red Blood Count 4.54 X10*6/uL (4.60-5.80); White Blood Count 10.7 X10*3/uL (4.8-10.8)
[2024-12-18 04:50] LABS: Alanine Aminotransferase 81 U/L (0-40); Albumin Level 4.3 g/dL (3.5-5.0); Alkaline Phosphatase 93 U/L (39-117); Anion Gap 16 (12-20); Aspartate Amino Transferase 39 U/L (5-37); Blood Urea Nitrogen 19 mg/dL (9-16); Calcium 9.3 mg/dL (8.4-10.2); Carbon Dioxide 25 mmol/L (22-29); Chloride 100 mmol/L (96-108); Creatinine Clr Calc Pharmacy 164.5; Estimated Glomerular Filt Rate > 60; Potassium 4.1 mmol/L (3.3-5.1); Sodium 137 mmol/L (135-145); Total Protein 7.7 g/dL (6.5-8.0)
--- NOTE | 2024-12-18 04:52 | PC.NURSE ---
Patient brought to ED from 23 from triage for evaluation of sudden onset of pain in right lower back/right flank x2 days. Per patient, pain has become constant and worse this morning. Patient denies n/v/d, discomfort with urination. VBD completed at triage, patient informed of need of urine sample for UA. Patient verbalized understanding. Patient is able to make his needs known, call an placed within patient's reach.
--- NOTE | 2024-12-18 05:22 | PC.NURSE ---
Urine sample collected for UA/C+S via clean catch and sent to lab for processing.
[2024-12-18 05:42] LABS: Appearance Urine Clear; Glucose Urine UA Negative (Negative); PH 5.0 (5.0-9.0); Specific Gravity - Urine >= 1.030 (1.005-1.025)
--- NOTE | 2024-12-18 07:36 | PC.NURSE ---
Pt states R flank/lower back pain worse when in a sitting position, better when standing or supine; denies urinary sx's or known injury
[2024-12-18 08:04] VITALS: BP 118/72; PULSE 80; RESP 16; O2SAT 95
--- NOTE | 2024-12-18 08:17 | ED_ITS ---
HPI - Back Pain/Injury General Chief Complaint: Back Pain/Injury Stated Complaint: lower back pain Time Seen by Provider: 12/18/24 08:08 Source: patient Mode of arrival: ambulatory Limitations: no limitations History of Present Illness ED Provider: NAOMI CHOUDHURY PA-C HPI Narrative: 44-year-old male with pmhx significant for hypertension, morbid obesity, SULEMAN, melanoma presents to the ED today for evaluation of right flank pain x2 days. Patient reports pain has been constant since onset. Localized to right flank. Reports pain worsened around 0200 this morning, waking him from his sleep. Admits pain is exacerbated by certain movements/ stretches. Reports taking Aleve and Tylenol around 2200 last night. He works at [employer] however does not recall lifting anything heavy. Denies blunt injury or trauma. Denies history of renal stones. Denies history of IV drug use. Denies numbness/tingling/weakness of the lower extremities. Denies bowel or bladder incontinence or retention. Denies saddle anesthesia. Denies dysuria, hematuria, increased urinary frequency or urgency. Related Data Home Medications ?Medication ?Instructions ?Recorded ?Confirmed epinephrine 0.125 mg/actuation 1 puff inhalation Q6H P RN 03/17/24 07/29/24 aerosol inhaler (Primatene Mist) Shortness Of Breath O r Wheezing Previous Rx's ?Medication ?Instructions ?Recorded albuterol sulfate 90 mcg/actuation 2 puff inhalation R Q4H PRN sob 03/19/24 aerosol inhaler (Ventolin HFA) #8.5 grams ascorbic acid (vitamin C) 500 mg 500 mg PO DAILY #30 t abs 03/19/24 tablet (Vitamin C) amoxicillin 875 mg-potassium 1 tab PO BID 7 days #14 t abs 07/29/24 clavulanate 125 mg tablet lisinopril 20 1 tab PO DAILY 30 days #30 t abs 08/17/24 mg-hydrochlorothiazide 25 mg tablet cyclobenzaprine 5 mg tablet 5 mg PO Q8H PRN muscle darryl n 3 days 12/18/24 #9 tabs lidocaine 5 % topical patch 1 patch topical DAILY #15 ea 12/18/24 (Lidoderm) Allergies Allergy/AdvReac Type Severity Reaction Status Date / Time No Known Allergies Allergy Verified 12/18/24 04:22 Review of Systems 2 Review of Systems: Constitutional: No fever, chills, fatigue, night sweats, weight changes ENT/Mouth: No ear pain, hearing loss, nasal congestion, sinus pain, rhinorrhea, sore throat Eyes: No eye pain, swelling, redness, vision changes, discharge Cardio: No chest pain, palpitations, GRANADOS, orthopnea, peripheral edema Pulm: No SOB, cough, sputum, wheezing, dyspnea, hemoptysis GI: No nausea, vomiting, hematemesis, abdominal pain, diarrhea, constipation, hematochezia, melena : No irregular bleeding, dysuria, frequency, urgency, hesitancy, hematuria, urinary flow changes, urinary incontinence or retention, +R flank pain MSK: No back pain, neck pain, joint pain, myalgias Skin: No lesions, rashes Neuro: No weakness, numbness, paresthesias, LOC, dizziness, headache Psych: No anxiety/panic, depression, SI/HI, AH/VH All other systems reviewed and are negative. [facility] Past Medical History Attestation statement: The following information was validated with the patient. Source: old records reviewed and nursing notes reviewed Medical History Impaired glucose metabolism HTN (hypertension) SULEMAN (obstructive sleep apnea) Surgical History S/P knee surgery S/P tonsillectomy Social History Social History Household Members: Significant Other Housing: House Do you presently have visiting nurse or other home services: No Alcohol intake: current Alcohol intake frequency: holidays/special occasions only Alcohol type: beer and hard liquor Patient Tobacco Use Status: Never used Tobacco Tobacco use type: Cigar e-Cigarette/Vaping Use: Never Used Second Hand Smoke Exposure: No service: No Current occupational status: employed Current occupation: [employer] Cognitive needs: No Hearing needs: No Vision needs: No Physical Exam 2 Vital Signs: Vital Signs: Last Vital Signs Temp 96.9 F 12/18/24 10:33 Pulse 85 12/18/24 10:33 Resp 17 12/18/24 10:33 BP 126/65 12/18/24 10:33 Pulse Ox 95 12/18/24 10:33 O2 Del Method Room Air 12/18/24 10:33 BMI result Body Mass Index 59.7 Vital signs stable, afebrile General: Well appearing, in no acute distress. Skin: Warm, dry, intact. No rashes or lesions. Head: Normocephalic, atraumatic. EENT: Hearing is intact b/l. Conjunctiva clear. Sclera is anicteric. PERRLA. EOM intact. Moist mucous membranes.? Neck: Supple without LAD Cardiac: Chest wall symmetric. RRR Lungs: Normal respiratory effort without accessory muscle use. CTA bilaterally Abdomen: Soft, non-tender, non-distended. No rebound tenderness or guarding. Positive BS x4. Right CVAT. Back: No midline spinous tenderness or step-off deformity. There is right- sided lumbar paraspinal muscle tenderness to palpation. No obvious spasm. No overlying skin changes. No deformity. Ext: Upper and lower extremities atraumatic, without tenderness, deformity, swelling or erythema. Full ROM throughout. Neuro: AOx3. Normal speech. Strength 5/5 intact throughout. No saddle anesthesia. Sensation intact to light touch. NV intact distally. Ambulating with steady gait. Course Course Course Narrative: CBC without leukocytosis or left shift. No anemia. H&H stable. Chemistry without acute electrolyte abnormality requiring intervention. BUN mildly elevated to 19 with normal creatinine. Renal function appears to be around baseline. Mild elevation in AST/ALT, stable when compared to priors. Urine without infection or blood. CT abdomen/pelvis without evidence of kidney pathology. No bowel obstruction. Notable for hepatic steatosis, hepatosplenomegaly. Radiologist notes a relatively well-defined lesion in the anterior segment of the right liver lobe measuring 2.5 cm, demonstrating increased density relative to fatty parenchyma. No other lesions. Recommending dedicated hepatic protocol CT scan outpatient. > patient has been treated with Flexeril, Toradol and lidocaine patch with improvement in discomfort. Given reproducibility and exacerbation with movement, I suspect musculoskeletal in etiology. Will discharge patient home with pain control. he is ambulating with steady gait. > informed patient of all workup results including liver findings on CT scan. Informed him that he needs to follow up with his PCP/GI doctor outpatient. Referral provided. Patient has remained stable throughout ED visit today. Discussed worrisome signs and symptoms and when to return to the ED. All questions answered at this time. Patient is agreeable with disposition and stable for discharge. Medications Administered Discontinued Medications Generic Name Dose Route Start Last Admin Trade Name Marion PRN Reason Stop Dose Admin Cyclobenzaprine HCl 10 mg 12/18/24 08:18 12/18/24 08:22 Cyclobenzaprine Hcl 10 Mg Tablet PO 12/18/24 08:19 10 mg ONCE ONE Administration Ketorolac Tromethamine 30 mg 12/18/24 08:18 12/18/24 08:22 Ketorolac Tromethamine 30 Mg/Ml Vial IM 12/18/24 08:19 30 mg ONCE ONE Administration Lidocaine 1 patch 12/18/24 08:18 12/18/24 08:21 Lidocaine 4 % Patch Adh..Patch TRANSDERMA 12/18/24 08:19 1 patch ONCE ONE Administration Protocol Medical Decision Making Medical Decision Making [facility] Narrative: 44-year-old male with pmhx significant for hypertension, morbid obesity, SULEMAN, melanoma presents to the ED today for evaluation of right flank pain x2 days. Vital signs stable. Afebrile. He is well-appearing and in no acute distress. On exam, there is no midline spinous tenderness or step-off deformity. Patient is tender to palpation over the right paraspinal musculature extending to the right CVA. No overlying skin changes. No palpable masses. Neurovascularly intact distally, ambulating with steady gait. Sensation intact to light touch throughout. Differential diagnosis includes MSK sprain/strain, muscle spasm, compression fracture, renal colic, nephrolithiasis, hydronephrosis, urinary tract infection. Unlikely cauda equina, Guillain-Birchwood, epidural abscess, cord compression. Basic labs and urine obtained from triage. Will add on imaging. Pain control ordered. Differential Diagnosis Differential Diagnoses: The differential diagnosis associated with the presentation includes As above Admission/Observation Not indicated Lab Data [facility] Lab Attestation statement: I reviewed the patient's lab results. As above 12/18/24 04:32 12/18/24 04:32 Labs: Lab Results 12/18/24 12/18/24 Range/Units 04:32 05:20 WBC 10.7 (4.8-10.8) X10*3/uL RBC 4.54 L (4.60-5.80) X10*6/uL Hgb 14.8 (14.0-18.0) g/dl Hct 42.2 (42.0-52.0) % MCV 93.0 (80.0-98.0) fL MCH 32.6 (27.0-33.0) pg MCHC 35.1 (31.0-36.0) g/dl RDW 12.9 (11.0-16.0) % Plt Count 254 (160-400) X10*3/uL MPV 9.8 (9.4-12.4) fL Immature Gran % (Auto) 0.5 H (0.0-0.4) % Neut % (Auto) 58.9 (45-73) % Lymph % (Auto) 27.3 (20-40) % Young % (Auto) 7.5 (2-11) % Eos % (Auto) 5.1 H (0-4) % Baso % (Auto) 0.7 (0-2) % Lymph # (Auto) 2.9 (1.2-4.9) X10*3/uL Young # (Auto) 0.8 (0.1-1.2) X10*3/uL Eos # (Auto) 0.5 H (0.0-0.4) X10*3/uL Baso # (Auto) 0.1 (0.0-0.2) X10*3/uL Abs Immat Gran (auto) 0.05 H (0.00-0.03) X10*3/uL Absolute Neuts (auto) 6.3 (2.0-8.3) x10*3/uL Absolute Nucleated RBC 0.000 (0.0-0.012) X10*3/uL Nucleated RBC % (auto) 0.0 (0.0-0.2) /100WBC Sodium 137 (135-145) mmol/L Potassium 4.1 (3.3-5.1) mmol/L Chloride 100 (96-108) mmol/L Carbon Dioxide 25 (22-29) mmol/L Anion Gap 16 (12-20) BUN 19 H (9-16) mg/dL Creatinine 0.91 (0.5-1.4) mg/dL Estim Creat Clear Calc 164.5 Estimated GFR > 60 Random Glucose 107 (60-115) mg/dL Calcium 9.3 (8.4-10.2) mg/dL Total Bilirubin 0.5 (0.0-1.0) mg/dL AST 39 H (5-37) U/L ALT 81 H (0-40) U/L Alkaline Phosphatase 93 (39-117) U/L Total Protein 7.7 (6.5-8.0) g/dL Albumin 4.3 (3.5-5.0) g/dL Urine Color Dark Yellow Urine Appearance Clear Urine pH 5.0 (5.0-9.0) Ur Specific [place] >= 1.030 H (1.005-1.025) Urine Protein Trace (Neg-Trace) mg/dL Urine Glucose (UA) Negative (Negative) mg/dL Urine Ketones Trace (Negative) mg/dL Urine Blood Negative (Negative) Urine Nitrite Negative (Negative) Ur Leukocyte Esterase Negative (Negative) Urine RBC 0-2 (0-2) /HPF Urine WBC 0-5 (0-5) /HPF Ur Squamous Epith Cells 0-2 (0-2) /HPF Urine Bacteria None Seen (None Seen) Hyaline Casts 0-2 (0-2) /LPF Independent Interpretation I performed an independent interpretation of an: CT Scan Interpretation: CT abdomen/pelvis without renal stone Radiology Impression Discussion of test interpretation with radiology: I have reviewed the radiologist's reading. Radiologist Impression: Date of Service: 12/18/24 Procedure(s): CT abdomen pelvis wo IV con Accession Number(s): [id number] cc: Sean Aguilar PA-C; Naomi Choudhury Report Number: [id number]: Total DLP = 1413.00 mGy-cm CLINICAL HISTORY: right flank pain CT abdomen and pelvis without contrast Comparison: None provided Findings: No consolidation or effusion. There is hepatic steatosis and hepatomegaly. There is splenomegaly. Gallbladder is unremarkable. There is no evidence of urolithiasis or obstructive uropathy. The rest of the solid organs are unremarkable. No bowel obstruction, pneumoperitoneum, or pneumatosis. Pelvic contents unremarkable. Normal appendix. The bones are intact. A relatively well-defined lesion is seen in the anterior segment of the right lobe measuring 2.5 cm. This demonstrates increased density relative to the fatty parenchyma. No other focal lesions are identified. IMPRESSION: 1. Hepatic steatosis. 2. Hepatosplenomegaly. 3. Suspect circumscribed lesion in the anterior segment of the right lobe measuring 2.5 cm. While this could represent a focus of fatty sparing a true mass is not excluded. Please obtain a dedicated hepatic protocol CT scan as an outpatient. This document has been electronically signed by: Carl Meier MD on 12/18/2024 09:17:15 External Record Review External record reviewed: Inpatient record Prescription Management I considered prescription management with: Pain Medication Social Determinants Patient?s care significantly limited by Social Determinants of Health including: Other Social Determinant of Health Critical Care Time Critical Care Time Critical Care Time: No Discharge Plan Discharge Clinical Impression: Lumbar strain Patient Disposition: Home, Self-Care Instructions: Muscle Strain (DC) Additional Instructions: Your blood work today is reassuring Your urine does not demonstrate infection or blood. The CT scan of your abdomen shows a fatty, enlarged liver. This is likely not the cause of your symptoms. As discussed, there is an incidental finding of a lesion to your liver with recommendation to obtain a dedicated liver CT scan outpatient. Please follow up with your primary care doctor and GI doctor for this imaging. I have provided you with a referral. Call them to establish care. They will not call you. The rest of your CT scan is normal. Given your pain is reproducible with palpation and movement, I have suspicion for musculoskeletal etiology. Avoid bending, lifting, or twisting. Use ice several times per day for 20 minutes at a time for the next 48 hours and then change to heat. I am sending naproxen, an anti-inflammatory, to your pharmacy. Do not take this with other NSAIDs such as Motrin or ibuprofen as this can cause increased risk of GI bleeding. Flexeril is a muscle relaxer. Take this at night as it makes you drowsy. Do not drive, drink alcohol, or operate machinery while taking it. Lidoderm patches are numbing patches. Apply to painful areas. Please schedule an appointment for follow-up with your primary care provider this week for further evaluation of your symptoms. Return to the Emergency Department if you experience worsening back pain, difficulty walking, fevers, numbness, tingling, incontinence, or any other concerning symptoms. In the case of an emergency call 911. CT results: IMPRESSION: 1. Hepatic steatosis. 2. Hepatosplenomegaly. 3. Suspect circumscribed lesion in the anterior segment of the right lobe measuring 2.5 cm. While this could represent a focus of fatty sparing a true mass is not excluded. Please obtain a dedicated hepatic protocol CT scan as an outpatient. Prescriptions: New cyclobenzaprine 5 mg tablet 5 mg PO Q8H PRN (Reason: muscle pain) 3 Days Qty: 9 0RF lidocaine [Lidoderm] 5 % adhesive patch,medicated 1 patch topical DAILY Qty: 15 0RF Rx Instructions: leave on most painful area for up to 12 hrs No Action lisinopril-hydrochlorothiazide 20-25 mg tablet 1 tab PO DAILY 30 Days Qty: 30 3RF Primatene Mist 0.125 mg/actuation Hfa Aerosol Inhaler 1 puff INHALATION Q6H PRN (Reason: Shortness Of Breath Or Wheezing) Rx Instructions: may repeat once after 1 minute ascorbic acid (vitamin C) [Vitamin C] 500 mg Tablet 500 mg PO DAILY Qty: 30 0RF albuterol sulfate [Ventolin HFA] 90 mcg/actuation Hfa Aerosol Inhaler 2 puff inhalation RQ4H PRN (Reason: sob) Qty: 8.5 0RF amoxicillin-pot clavulanate 875-125 mg tablet 1 tab PO BID 7 Days Qty: 14 0RF Referrals: [facility] [Provider Group, Gastroenterology] Sean Aguilar PA-C [Primary Care Provider, Internal Medicine] Interventions: ED Discharge Assessment Last Done: 12/18/24 10:33 Discharge Date/Time: 12/18/24 10:34 Print Language: Latvian
[2024-12-18] MEDS: Lidocaine 4 % Patch ADH..PATCH 1 PATCH TRANSDERMA (08:21)
[2024-12-18 10:32] VITALS: BP 126/65; PULSE 85; RESP 17; TEMP 36.1; O2SAT 95
[2024-12-18 10:33] VITALS: BP 126/65; PULSE 85; RESP 17; TEMP 36.1; O2SAT 95
== END 2024-12-18 10:34 | disposition home or self-care (01) ==
PROVIDERS: Emergency Provider Emergency Medicine Emergency Medical Services; PCP Physician Assistant
DX: S39.012A Strain of muscle, fascia and tendon of lower back, initial encounter (principal); R10.2 Pelvic and perineal pain; X50.0XXA Overexertion from strenuous movement or load, initial encounter; Y93.9 Activity, unspecified; Y92.9 Unspecified place or not applicable; Y99.8 Other external cause status; Z79.899 Other long term (current) drug therapy
CPT/HCPCS: 36415; 74176; 80053; 81001; 85025; 96372; 99284; J1885

== ENCOUNTER → 2024-12-18 08:18 | Outpatient (BNV) | payer OTHER, SELFPAY | PROVIDERS: Emergency Provider Emergency Medicine Emergency Medical Services; PCP Physician Assistant; Visit Provider Radiology Diagnostic Radiology | DX: K76.0 Fatty (change of) liver, not elsewhere classified (principal); R16.2 Hepatomegaly with splenomegaly, not elsewhere classified | CPT/HCPCS: 74176 ==

== ENCOUNTER 2024-12-22 08:13 | Outpatient (AMB) | payer OTHER, SELFPAY ==
[2024-12-22 08:15] VITALS: BP 134/76; PULSE 91; RESP 18; TEMP 36.2; O2SAT 95; BMI 58.1
--- NOTE | 2024-12-22 08:15 | A.OFFPC_ITS ---
Vital Signs 12/22/24 08:15 Height 5 ft 8 in Weight 382 lb BMI 58.1 BP 134/76 Blood Pressure Location Lt brachial Position Sitting Respiration 18 Pulse 91 Pulse Source Pulse Oximeter Temp 97.1 F Temp Source Temporal Artery Scan Pulse Oximetry (%) 95 Oxygen Delivery Method Room Air Intake Visit Reasons: F/Uf/u HTN/ obesity. Allergies No Known Allergies Allergy (Verified 12/22/24 08:30) Medication List - Last Reconciled 12/22/24 by Sean Aguilar PA-C albuterol sulfate 90 mcg/actuation (Ventolin HFA) 2 puffs inhalation RQ4H PRN ascorbic acid (vitamin C) (Vitamin C) 500 mg PO DAILY epinephrine 0.125 mg/actuation (Primatene Mist) 1 puff inhalation Q6H PRN lidocaine 5% (Lidoderm) 1 patch topical DAILY lisinopril-hydrochlorothiazide 20-25 mg 1 tab PO DAILY 30 days Tobacco use date assessed: 12/22/24 Dental Screening Dental Screen Date: 12/22/24 Did you have a dental visit in the last 12 months?: No Did you have a dental problem in the last 6 months where you did not have access to dental care?: No Was dental information given to patient?: Patient declined HPI F/Uf/u HTN/ obesity. HPI Details Patient is a 44-year-old male here today for blood pressure med follow-up. Patient recently seen at the [place] [facility] for acute lower back pain. The lumbar muscle strain began suddenly on December 18, causing severe pain that prevented the patient from sitting or standing comfortably. He sought emergency care where blood and urine tests were normal, and a CT scan ruled out kidney issues, identifying the strain as muscular. Of note---> - The patient has a history of fatty liver and splenomegaly, noted incidentally during imaging for the back pain. A hepatic lesion measuring 2.5 cm was identified, with recommendations for further hepatic CT imaging to rule out a true mass. The patient has a history of melanoma, treated with excision from the dexter in July, following a diagnosis in June. The wound from the excision is healing, though it required special care due to its location. Hypertension: Patient's blood pressure today in office acceptable. He continues on lisinopril hydrochlorothiazide. Has lost a few lb since last office visit. CLASS 3 OBESITY: Unfortunately has gained weight since last office visit. He reports he is much more physically inactive due to a right ankle injury and recently diagnosed with a melanoma over his right leg that has underwent Mohs procedure. He has unfortunately stopped speaking with a dietitian. He had plans on getting back to his regular diet and being more physically active. .. Obstructive sleep apnea: Continues to use CPAP machine on a nightly basis with good effect. We have discuss the possibility of starting a GLP 1 to help him with weight reduction and trying to control his obstructive sleep apnea [facility] Medical History Impaired glucose metabolism HTN (hypertension) SULEMAN (obstructive sleep apnea) Surgical History S/P knee surgery S/P tonsillectomy Social History Household Members: Significant Other Housing: House Do you presently have visiting nurse or other home services: No Alcohol intake: current Alcohol intake frequency: holidays/special occasions only Alcohol type: beer and hard liquor Patient Tobacco Use Status: Never used Tobacco Tobacco use type: Cigar e-Cigarette/Vaping Use: Never Used Second Hand Smoke Exposure: No service: No Current occupational status: employed Current occupation: [employer] Cognitive needs: No Hearing needs: No Vision needs: No Questionnaire PHQ-9 Over the last 2 weeks, how often have you been bothered by any of the following problems? 1. Little interest or pleasure in doing things: not at all 2. Feeling down, depressed, or hopeless: not at all 3. Trouble falling or staying asleep, or sleeping too much: not at all 4. Feeling tired or having little energy: not at all 5. Poor appetite or overeating: not at all 6. Feeling bad about yourself - or that you are a failure or have let yourself or your family down: not at all 7. Trouble concentrating on things, such as reading the newspaper or watching television: not at all 8. Moving or speaking so slowly that other people could have noticed. Or the opposite - being so fidgety or restless that you have been moving around a lot more than usual: not at all 9. Thoughts that you would be better off or of hurting yourself in some way: not at all Total score: 0 Depression Screening Interpretation: Negative Depression Screening Done: Yes [id number] - PHQ-9 Billing: Yes Source: Developed by Drs. Juan Borjas, Connie Keita, Obed Lacey and colleagues, with an educational izabel from [employer]. Thrive Questionnaire Date Thrive assessed: 07/29/24 I am a: Patient What is your living situation today?: I have a steady place to live Within the past 12 months, did the food you bought not last and you didn't have the money to get more?: Never true Within the past 12 months, did you worry whether your food would run out before you got money to buy more?: Never true Do you have trouble paying for medicines?: No Do you have trouble getting transportation to medical appointments?: No Do you have trouble paying your heating and electricity bill?: No Do you have trouble taking care of your child, family member or friend?: No Do you have trouble with day-to-day activities such as bathing, preparing meals, shopping, managing finances, etc.?: No Are you currently unemployed and looking for a job?: Yes Are you interested in more education?: No Please select the resources that you would like help with: None Currently or been in a relationship where the following occur: No concerns reported THRIVE Score: 0 AUDIT C Alcohol Use Questionnaire (AUDIT-C) 1. How often do you have a drink containing alcohol?: 2-3 times a week 2. How many drinks containing alcohol do you have on a typical day when you are drinking?: 1 or 2 3. How often do you have six or more drinks on one occasion?: Monthly Total Score: 5 JOSSELINE-7 AMB Questionnaire JOSSELINE-7 Date JOSSELINE - 7 assessed: 07/29/24 Feeling nervous, anxious, or on edge: 0 = Not at all Not being able to stop or control worryin = Not at all Worrying too much about different things: 0 = Not at all Trouble relaxin = Not at all Being so restless that it is hard to sit still: 0 = Not at all Becoming easily annoyed or irritable: 0 = Not at all Feeling afraid as if something awful might happen: 0 = Not at all Total JOSSELINE-7 score (0-4 normal; 5-9 mild; 10-14 moderate; 15-21 severe): 0 Source: Developed by Drs. Juan Borjas, Connie Keita, Obed Lacey and colleagues, with an educational izabel from [employer]. Review of Systems Const Denies headache(s) Eyes Denies loss of vision ENT Denies vertigo, Denies dizziness, Denies headache(s) and Denies sore throat Card Denies chest pain, Denies leg edema and Denies lightheadedness Resp Denies cough, Denies hemoptysis and Denies wheezing GI Denies abdominal pain, Denies melena, Denies constipation, Denies diarrhea and Denies vomiting Denies dysuria, Denies urinary frequency and Denies urinary urgency Musc Denies arthralgias, Denies joint swelling, Denies numbness and Denies tingling Neuro Denies Abnormal speech present, Denies behavioral changes, Denies vertigo, Denies dizziness, Denies headache(s), Denies loss of vision, Denies memory loss, Denies numbness and Denies tingling Psych Denies anxiety, Denies behavioral changes, Denies depression, Denies memory loss and Denies panic attacks Rashard/Lymph Denies easy bleeding and Denies easy bruising Aller/Immun Denies wheezing Physical exam (Primary Care) Vital Signs: Last Vital Signs Temp 97.1 F 12/22/24 08:15 Pulse 91 12/22/24 08:15 Resp 18 12/22/24 08:15 BP 134/76 12/22/24 08:15 Pulse Ox 95 12/22/24 08:15 Oxygen Delivery Method Room Air 12/22/24 08:15 BMI result Body Mass Index 58.1 BMI Assessment/Plan discussion: High BMI High, discussed plan: lifestyle, weight reduction, dietary and physical activity Tobacco/Smoking Status: Tobacco use Status Tobacco use date assessed 12/22/24 12/22/24 08:20 Patient Tobacco Use Status Never used Tobacco 12/22/24 08:20 Tobacco use type Cigar 12/22/24 08:20 e-Cigarette/Vaping Use Never Used 12/22/24 08:20 PHQ-9: PHQ-9 Score PHQ-9: Total score 0 12/22/24 08:20 Depression Screening Interpretation: Negative Thrive Assessment: Date of Thrive Assessment Date Thrive assessed 07/29/24 12/22/24 08:20 Currently or been in a relationship where the following occur: No concerns reported Const General: healthy appearing, no acute distress, alert and awake Nutritional Appearance: well nourished Orientation/consciousness: oriented to person, oriented to place and oriented to time HENMT Ears: TM's normal bilaterally General nose exam: Normal nasal mucous membranes and turbinates present Eyes Conjunctivae: conjunctivae normal Sclerae: sclerae normal Pupils: Equal, round and reactive pupils present Neck Neck: Yes no lymphadenopathy and Yes no JVD Thyroid: Thyroid normal Carotids: no bruits Resp Effort & Inspection: normal respiratory effort and not tachypneic Auscultation: no crackles, no rales, no rhonchi and no wheezes Cardio Rate: regular rate Rhythm: regular rhythm Heart sounds: no murmurs and normal S1 and S2 GI Palpation (GI): Soft to palpation, nontender, no hepatomegaly and no splenomegaly Auscultation: normal bowel sounds Skin General skin exam: no rashes or lesions noted and dry skin Neuro General: oriented to person, oriented to place and oriented to time Cranial nerves: Yes Equal, round and reactive pupils present Speech: No Abnormal speech present Gait exam (Neuro): Normal gait present Motor exam (neuro): no tremor noted Extrem Right upper extremity: full ROM Left upper extremity: full ROM Right lower extremity: full ROM; no edema Left lower extremity: full ROM; no edema Psych Mental Status: mental status grossly normal Speech and movement: Normal speech and movement present Affect: normal affect Attitude: cooperative Thought process: Normal thought process present Coding Level of Care Code Est Pt Level 4 (42830) Diagnoses Primary hypertension I10 Hypertension type: primary hypertension Class 3 obesity E66.813 SULEMAN (obstructive sleep apnea) G47.33 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 C43.71 Melanoma location: lower extremity including hip Laterality: right Liver lesion, right lobe K76.9 Strain of lumbar region, subsequent encounter S39.012D Encounter type: subsequent encounter Additional Codes PHQ-9 - 91784 - PHQ-9 Billing: Yes ([id number]) Assessment & Plan Assessment & Plan (1) HTN (hypertension): Code(s): I10 - Essential (primary) hypertension Category: Medical Qualifiers: Hypertension type: primary hypertension Qualified Code(s): I10 - Essential (primary) hypertension Plan: Patient's blood pressure acceptable today in office. Will continue current dose lisinopril hydrochlorothiazide with goal blood pressure to remain below 140/90 (2) Class 3 obesity: Code(s): E66.813 - Obesity, class 3 Category: Medical Plan: Unfortunately patient gained weight since last office visit. Has been fairly inactive over the last month and a half due to getting surgery in his leg for melanoma and injuring his foot. He plans on getting more physically active returning back to work and getting back on a good diet. We did discuss the possibility was trying a GLP 1 though will help him with his obstructive sleep apnea and weight reduction. (3) SULEMAN (obstructive sleep apnea): Code(s): G47.33 - Obstructive sleep apnea (adult) (pediatric) Category: Medical Plan: As above- continues to use CPAP machine on a nightly basis good effect. (4) Melanoma: Code(s): C43.9 - Malignant melanoma of skin, unspecified Category: Medical Qualifiers: Melanoma location: lower extremity including hip Laterality: right Qualified Code(s): C43.71 - Malignant melanoma of right lower limb, including hip Plan: Recently found to have melanoma over his right lower leg. Did undergo a Mohs procedure in currently healing. Of note noted a 2.5 cm liver lesion on most recent abdomen CT. Has elevated liver enzymes. Will try for MR imaging of the abdomen evaluate the liver (5) Liver lesion, right lobe: Code(s): K76.9 - Liver disease, unspecified Category: Medical Plan: A hepatic lesion measuring 2.5 cm was identified on imaging, with further hepatic CT imaging recommended to rule out a true mass. Given the patient's history of melanoma, there is a concern for potential metastasis, warranting close monitoring. (6) Lumbar strain: Code(s): S39.012A - Strain of muscle, fascia and tendon of lower back, initial encounter Category: Medical Qualifiers: Encounter type: subsequent encounter Qualified Code(s): S39.012D - Strain of muscle, fascia and tendon of lower back, subsequent encounter Plan: The patient experienced a sudden onset of severe lumbar pain on December 18, leading to an emergency room visit where muscular strain was diagnosed. Management includes the use of non-opioid analgesics such as Motrin and Aleve, and muscle relaxants like cyclobenzaprine, with physical therapy as a potential option if symptoms persist. Orders: Orders MR abdomen wo/w con Today K76.9 - Liver disease, unspecified Comprehensive [place]. Panel Fast Today I10 - Essential (primary) hypertension Complete Blood Count no Diff Today I10 - Essential (primary) hypertension Medications: New cyclobenzaprine 5 mg PO Q8H PRN 21 tabs 0RF muscle spasm 7 days S39.012D - Strain of muscle, fascia and tendon of lower back, subsequent encounter Changed From lisinopril-hydrochlorothiazide 20-25 mg 1 tab PO DAILY 30 days 30 tabs 3RF I10 - Essential (primary) hypertension To lisinopril-hydrochlorothiazide 20-25 mg 1 tab PO DAILY 90 tabs 2RF 90 days I10 - Essential (primary) hypertension
--- OUTSIDE RECORDS SUMMARY | 2024-12-22 08:15 | XMS_ITS | Encounter Summary ---
Author Organization [facility] Address [address] [place] [address] Care Team Providers Care Pack Train Driver Name Role Phone Ella Carmichael MD Primary Care Provider Unavail able Ella Carmichael MD Primary Care Provider Unavail able Encounter Details Date Type Department Care Team Description 04/11/2016 [facility] Medical Records [address] [place] [id number] Liliane Stevens Social History Tobacco Use Types Packs/Day Years Used Date Smoking Tobacco: Never Smokeless Tobacco: Never Alcohol Use Standard Drinks/Week Comments Yes 16.7 (1 standard drink = 0.6 oz pure alcohol) 4-5x week, 3-4 per episode Sex Assigned at Date Recorded Not on file documented as of this encounter Plan of Treatment Not on file documented as of this encounter Visit Diagnoses Not on filedocumented in this encounter Care Teams Pack Train Driver Relationship Specialty Start Date End Date Ella Carmichael MD PCP - General Internal Medicine 05/21/16 Ella Carmichael MD PCP - General 04/05/16 05/20/16 documented as of this encounter
== END 2024-12-22 08:53 | disposition home or self-care (01) ==
LOC: HO.HMCH 08:13
PROVIDERS: PCP Physician Assistant; Visit Provider Physician Assistant
DX: I10 Essential (primary) hypertension (principal); E66.813 Obesity, class 3; C43.71 Malignant melanoma of right lower limb, including hip; Z68.43 Body mass index [BMI] 50.0-59.9, adult; G47.33 Obstructive sleep apnea (adult) (pediatric); K76.9 Liver disease, unspecified; S39.012D Strain of muscle, fascia and tendon of lower back, subsequent encounter

== ENCOUNTER → 2024-12-22 08:13 | Outpatient (BNVA) | payer OTHER, SELFPAY | PROVIDERS: PCP Physician Assistant; Visit Provider Physician Assistant | DX: I10 Essential (primary) hypertension (principal); E66.813 Obesity, class 3; G47.33 Obstructive sleep apnea (adult) (pediatric); C43.71 Malignant melanoma of right lower limb, including hip; K76.9 Liver disease, unspecified; S39.012D Strain of muscle, fascia and tendon of lower back, subsequent encounter; X58.XXXD Exposure to other specified factors, subsequent encounter; Z99.89 Dependence on other enabling machines and devices; Z68.43 Body mass index [BMI] 50.0-59.9, adult | CPT/HCPCS: 96127 ==

== ENCOUNTER 2025-01-29 09:41 | Outpatient (REF) | payer OTHER, SELFPAY ==
--- NOTE | ~2025-01-29 | MR_ITS ---
EXAMINATION: MR ABDOMEN WITHOUT THEN WITH IV CONTRAST HISTORY: K76.9 - Liver disease, unspecified COMPARISON: Relation is made with a CT of the abdomen and pelvis dated 425. TECHNIQUE: Axial in and out of phase T1-weighted gradient echo, axial diffusion weighted, and axial and coronal HASTE T2 with fat saturation images were obtained through the abdomen. Subsequently, fat suppressed axial and coronal T1-weighted images were obtained after the intravenous administration of 10 mL Gadavist. FINDINGS: The examination is extremely limited due to patient body habitus resulting in artifacts and poor fat suppression. Liver: There is marked diffuse loss of signal intensity in the liver on opposed phase imaging, consistent with steatosis. There is a 2.4 cm lobulated T2 intense lesion in segment V. Peripheral enhancement is seen on the 5 minute delayed images, but not on earlier images. While this lesion may represent a hemangioma, the enhancement characteristics are more atypical. The hepatic and portal veins are patent. There is no intrahepatic biliary dilatation. Gallbladder/biliary tree: No gallstones are identified. The common bile duct is normal in caliber. No intraluminal filling defects are identified to suggest choledocholithiasis. Spleen: The spleen is enlarged, but otherwise unremarkable in appearance. Pancreas: The pancreas is unremarkable. There is no enhancing pancreatic mass. The pancreatic duct is normal in caliber. Adrenals: The adrenal glands are unremarkable. Kidneys: There is a 1.6 cm cyst at the upper pole of the left kidney. The right kidney is unremarkable. There is no hydronephrosis. Lymph nodes: There is no retroperitoneal lymphadenopathy in the upper abdomen. Fluid: There is no ascites in the upper abdomen. Visualized bowel: The visualized small and large bowel loops are unremarkable in appearance. Visualized bones: The visualized bones demonstrate normal marrow signal intensity. MR/MR abdomen wo/w con IMPRESSION: 1. Markedly limited examination due to patient body habitus 2. Hepatic steatosis. 3. 2.4 cm lesion in segment V which may represent a hemangioma, although the enhancement pattern is somewhat atypical. Follow-up is recommended. 4. Splenomegaly. Electronically signed by: Juan Barnes MD 01/29/2025 11:27 AM EDT
== END 2025-01-29 09:42 | disposition home or self-care (01) ==
LOC: HO.MRI 09:41
PROVIDERS: PCP Physician Assistant; Visit Provider Physician Assistant
DX: K76.9 Liver disease, unspecified (principal)
CPT/HCPCS: 74183; A9585

== ENCOUNTER → 2025-01-29 09:41 | Outpatient (BNV) | payer OTHER, SELFPAY | PROVIDERS: PCP Physician Assistant; Visit Provider Radiology Diagnostic Radiology | DX: R16.1 Splenomegaly, not elsewhere classified (principal) | CPT/HCPCS: 74183 ==